=== PATIENT | female | born 1980 | race Caucasian/White ===

== ENCOUNTER 2016-06-16 16:37 | Emergency (ER) | payer SELFPAY ==
[~2016-06-16] VITALS: Ht 165.1 cm; Wt 76.2 kg
[~2016-06-16 16:37] MED LIST: CEPH500C PO; CYCL10TA2 PO; HYDR-971 PO; IBUP-1027 PO; MUPI22OI2 TP; OXYC-323 PO; PRED20TA PO; SULF1TAB24 PO
[2016-06-16 16:43] VITALS: BP 139/81
[2016-06-16] MEDS ORDERED: ORPH100T PO (16:59)
[2016-06-16] MEDS ORDERED: NAPR550T PO (16:59)
[2016-06-16] MEDS ORDERED: HYDR-971 PO (16:59)
--- NOTE | 2016-06-16 17:00 | PHYS DOC ---
Past Medical History Past Medical History: Other Additional Past Medical Histor: back pain Past Surgical History: No Surgical History Alcohol Use: None Drug Use: None Adult General Chief Complaint Chief Complaint: LOWEREXTREMITY INJURY [facility] HPI Patient is a 36 year old female presents emergency room the complain of left hip and groin pain secondary to stepping into an uneven surface last night causing her to twist her left leg outward with subsequent fall. Patient denies striking her head or loss of consciousness. She denies any history of bone forming disorders. She denies any previous hip or thigh fractures or dislocations. She states that she is able to bear weight and walk on it but it does cause tightness and pulling in her left groin region. Patient does have an established history of chronic back pain with degenerative disc disease. Review of Systems Review of Systems Constitutional: Denies fever or chills [] Eyes: Denies change in visual acuity, redness, or eye pain [] HENT: Denies nasal congestion or sore throat [] Respiratory: Denies cough or shortness of breath [] Cardiovascular: No additional information not addressed in HPI [] GI: Denies abdominal pain, nausea, vomiting, bloody stools or diarrhea [] : Denies dysuria or hematuria [] Musculoskeletal: Denies back pain or joint pain [] Integument: Denies rash or skin lesions [] Neurologic: Denies headache, focal weakness or sensory changes [] Endocrine: Denies polyuria or polydipsia [] Allergies Allergies Allergies Coded Allergies Type Severity Reaction Last Updated Verified No Known Drug Allergies 08/20/14 No Physical Exam Physical Exam Constitutional: Well developed, well nourished, no acute distress, non-toxic appearance. Patient ambulated to the examination room with a steady, but antalgic gait. HENT: Normocephalic, atraumatic, bilateral external ears normal, oropharynx moist, no oral exudates, nose normal. [] Eyes: PERRLA, EOMI, conjunctiva normal, no discharge. [] Neck: Normal range of motion, no tenderness, supple, no stridor. [] Cardiovascular:Heart rate regular rhythm, no murmur [] Lungs & Thorax: Bilateral breath sounds clear to auscultation [] Abdomen: Bowel sounds normal, soft, no tenderness, no masses, no pulsatile masses. [] Skin: Warm, dry, no erythema, no rash. [] Back: No tenderness, no CVA tenderness. Extremities: Left hip and upper left leg are normal in appearance. There is no bruising or swelling noted. There is tenderness to palpation in the left inguinal crease and into the proximal aspect of the thigh. There is no palpable defect, deformity, instability or crepitus. Patient is able to perform full range of motion without any difficulty. Her left knee is normal in appearance and nontender to palpation. Left lower extremity is neurovascular intact with capillary refill less than 2 seconds. Neurologic: Alert and oriented X 3, normal motor function, normal sensory function, no focal deficits noted. [] Psychologic: Affect normal, judgement normal, mood normal. [] Current Patient Data Vital Signs Vital Signs Date Time Temp Pulse Resp B/P Pulse Ox O2 Delivery O2 Flow Rate FiO2 06/16/16 16:43 97.4 91 16 98 Room Air 97.4 EKG EKG [] Radiology/Procedures Radiology/Procedures [] Course & Med Decision Making Course & Med Decision Making Pertinent Labs and Imaging studies reviewed. (See chart for details) [] Dragon Disclaimer Dragon Disclaimer This electronic medical record was generated, in whole or in part, using a voice recognition dictation system. Departure Departure Impression: Primary Impression: Strain of left hip Disposition: HOME, SELF-CARE Condition: GOOD Referrals: NO PCP (PCP) Patient Instructions: Hip Injury Additional Instructions: 1. You have strained the soft tissues of the left hip. This will cause tightness and pain in your left hip for the next 5-7 days or so. Apply ice packs every 2 hours for 20-30 minutes at a time for the next day, then apply heat packs over 2 hours for 20-30 minutes at a time after that. 2. You are okay to bear weight and walk. You are encouraged to do so and maintain mild activity level. 3. Take the medication as prescribed 4. Review the discharge instructions provided for self-care and reasons to return to the emergency department. 5. Use the pamphlet provided for assistance in finding a primary care doctor's office to address your medical concerns and provide follow-up care. Scripts Hydrocodone/Apap 5-325 ([place] 5-325 Tablet)1 Each Tablet1 Tab PO PRN Q6HRS PRN PAIN #10 TAB Prov:JUAN JOSE VALDIVIA 06/16/16 Orphenadrine Citrate 100 Mg Tablet.er100 Mg PO BID muscle relaxer #14 Prov:JUAN JOSE VALDIVIA 06/16/16 Naproxen Sodium (Anaprox Ds)550 Mg Pydkls425 Mg PO BID #20 Prov:JUAN JOSE VALDIVIA 06/16/16 JUAN JOSE VALDIVIA Jun 16, 2016 17:00
== END 2016-06-16 17:15 | disposition home or self-care (01) ==
LOC: ER 16:37
DX: S76.012A Strain of muscle, fascia and tendon of left hip, initial encounter (principal); R10.32 Left lower quadrant pain; G89.29 Other chronic pain; W01.0XXA Fall on same level from slipping, tripping and stumbling without subsequent striking against object, initial encounter; Y93.89 Activity, other specified; Y99.8 Other external cause status; Y92.89 Other specified places as the place of occurrence of the external cause
CPT/HCPCS: 99283

== ENCOUNTER 2016-08-30 21:14 | Emergency (ER) | payer SELFPAY ==
[~2016-08-30] VITALS: Ht 165.1 cm; Wt 79.4 kg
[~2016-08-30 21:14] MED LIST changes: +NAPR550T PO; +ORPH100T PO
[2016-08-30 21:27] VITALS: BP 144/72
[2016-08-30] MEDS ORDERED: NAPROXEN 500 MG TABLET PO ONE (21:45)
[2016-08-30] MEDS ORDERED: HYDROcodone/APAP 5/325MG 1 TAB TABLET PO ONE (21:45)
[2016-08-30] MEDS ORDERED: CYCL10TA2 PO (22:36)
[2016-08-30] MEDS ORDERED: NAPR500T8 PO (22:36)
--- NOTE | 2016-08-30 22:36 | PHYS DOC ---
Past Medical History Past Medical History: Other Additional Past Medical Histor: back pain Past Surgical History: No Surgical History Alcohol Use: None Drug Use: None Adult General Chief Complaint Chief Complaint: UPPER EXTREMITY INJURY HPI HPI Patient is a 36 year old female with no significant medical history who presents today with mild right forearm and right hand pain generalized in nature worse on movement of the upper extremity that began at 11 AM after she fell, she states her hand and forearm ended up in a hole. Patient denies any loss of consciousness. Review of Systems Review of Systems Constitutional: Denies fever or chills [] Musculoskeletal: Right hand and forearm pain [] Integument: Denies rash or skin lesions [] Neurologic: Denies headache, focal weakness or sensory changes [] Endocrine: Denies polyuria or polydipsia [] Current Medications Current Medications Current Medications Medications (Trade) Dose Ordered Sig/Chase Start Time Stop Time Status Last Admin Dose Admin Acetaminophen/ Hydrocodone Bitart (Lortab 5/325) 1 tab 1X ONCE 08/30/16 21:45 08/30/16 21:46 DC 08/30/16 21:51 1 TAB Naproxen (Naprosyn) 500 mg 1X ONCE 08/30/16 21:45 08/30/16 21:46 DC 08/30/16 21:50 500 MG Allergies Allergies Allergies Coded Allergies Type Severity Reaction Last Updated Verified No Known Drug Allergies 08/20/14 No Physical Exam Physical Exam Constitutional: Well developed, well nourished, no acute distress, non-toxic appearance. [] HENT: Normocephalic, atraumatic, bilateral external ears normal, oropharynx moist, no oral exudates, nose normal. [] Skin: Warm, dry, no erythema, no rash. [] Back: No tenderness, no CVA tenderness. [] Extremities: Right hand and forearm with no obvious deformity. Small amount of soft tissue swelling noted on the right forearm. Bruising noted on the right forearm especially on the lateral aspect. Tenderness diffusely on the right forearm, no scaphoid pain or tenderness on the right wrist. Full range of motion to the right forearm,wrist and hand. Adequate plantar flexion and dorsiflexion of the right forearm. Adequate radial, medial, and ulnar sensation to the right forearm and hand. +2 right radial pulse. Cap refill less than 2 seconds the right upper extremity. Sensation intact to the right upper extremity. Neurologic: Alert and oriented X 3, normal motor function, normal sensory function, no focal deficits noted. [] Psychologic: Affect normal, judgement normal, mood normal. [] Current Patient Data Vital Signs Vital Signs Date Time Temp Pulse Resp B/P (MAP) Pulse Ox O2 Delivery O2 Flow Rate FiO2 08/30/16 21:51 20 97 Room Air 08/30/16 21:27 98.1 92 98.1 EKG EKG [] Radiology/Procedures Radiology/Procedures [] Course & Med Decision Making Course & Med Decision Making Pertinent Labs and Imaging studies reviewed. (See chart for details) Patient is in the ED with complaints of right hand and right forearm pain after falling in a hole right hand and right forearm x-rays interpreted by Dr. Peralta are negative for any acute findings. Discharged with naproxen and Flexeril. Ice elevation encouraged. Follow-up with orthopedic doctor which provided in a week if pain continues. Neosporin recommended to bruised areas. Dragon Disclaimer Dragon Disclaimer This electronic medical record was generated, in whole or in part, using a voice recognition dictation system. Departure Departure Impression: Primary Impression: Fall into hole Additional Impressions: Contusion of right forearm Contusion of right hand Bruising Disposition: HOME, SELF-CARE Condition: STABLE Referrals: NO PCP (PCP) MARLON VILLELA II, MD Follow-up with orthopedic doctor in one week Patient Instructions: Contusion, [id number], Fall Prevention and Home Safety Additional Instructions: You were seen for right hand and right forearm contusion, after falling into a hole. Your x-rays of the right forearm and right hand are normal. Ice and elevate the extremity. Take the prescribed medicines as needed for pain. Follow- up with the provided orthopedic doctor in a week if pain continues. Apply Neosporin to the bruised area on your forearm and hand. Scripts Naproxen (NAPROXEN) 500 Mg Tablet.dr 1 TAB PO BID, #60 TAB 1 Refill Prov: FATMATA ACOSTA APRN 08/30/16 Cyclobenzaprine Hcl (CYCLOBENZAPRINE HCL) 10 Mg Tablet 1 TAB PO TID, #30 TAB Prov: FATMATA ACOSTA SLEEVE [employer]KER 08/30/16 Problem Qualifiers Primary Impression: Fall into hole Encounter type: initial encounter Qualified Codes: W17.2XXA - Fall into hole , initial encounter Additional Impressions: Contusion of right forearm Encounter type: initial encounter Qualified Codes: S50.11XA - Contusion of right forearm, initial encounter Contusion of right hand Encounter type: initial encounter Qualified Codes: S60.221A - Contusion of right hand, initial encounter FATMATA ACOSTA APRN August 30, 2016 22:36
--- NOTE | 2016-08-31 07:23 | RAD ---
Right hand, 3 views, 08/30/2016: History: Injury No fracture or dislocation is identified. The soft tissues are unremarkable. IMPRESSION: No acute right hand abnormality is detected. Right forearm, 2 views, 08/30/2016: No fracture or dislocation is identified. The soft tissues are unremarkable. IMPRESSION: No significant right forearm abnormality is detected.
== END 2016-08-30 22:50 | disposition home or self-care (01) ==
LOC: ER 21:14
DX: S50.11XA Contusion of right forearm, initial encounter (principal); S60.221A Contusion of right hand, initial encounter; W17.2XXA Fall into hole, initial encounter; Y93.89 Activity, other specified; Y92.89 Other specified places as the place of occurrence of the external cause; Y99.8 Other external cause status
CPT/HCPCS: 73090; 73130; 99284-25

== ENCOUNTER 2016-09-23 22:58 | Emergency (ER) | payer SELFPAY ==
[~2016-09-23] VITALS: Ht 167.6 cm; Wt 79.4 kg
[~2016-09-23 22:58] MED LIST changes: +NAPR500T8 PO
[2016-09-23 23:08] VITALS: BP 157/83
[2016-09-23 23:23] LABS: BILIRUBIN,URINE NEGATIVE (NEG); GLUCOSE,URINE NEGATIVE (NEG); NITRITE,URINE NEGATIVE (NEG); PH,URINE 5.5; PROTEIN,URINE NEGATIVE (NEG-TRACE); UROBILINOGEN,URINE 0.2 mg/dL (0.2 mg/dL)
--- NOTE | 2016-09-23 23:23 | PHYS DOC ---
Past Medical History Past Medical History: Other Additional Past Medical Histor: back pain Past Surgical History: No Surgical History Alcohol Use: None Drug Use: None Adult General Chief Complaint Chief Complaint: PAIN ON URINATION HPI HPI Patient is a 36 year old female presenting to the emergency department for evaluation of left lower quadrant and suprapubic abdominal pain that radiates to her left flank that has been going on for the past 5-6 days and is associated with dysuria. Episode of nausea and vomiting but she denies any fevers chills vaginal bleeding vaginal discharge diarrhea or constipation. She denies any prior abdominal surgeries and she is in no obvious distress with normal vital signs. Review of Systems Review of Systems Constitutional: Denies fever or chills [] GI: + abdominal pain, nausea, vomiting. No bloody stools or diarrhea [] : + dysuria. No hematuria [] Musculoskeletal: + back pain. No joint pain [] Current Medications Current Medications Current Medications Medications (Trade) Dose Ordered Sig/Chase Start Time Stop Time Status Last Admin Dose Admin Ibuprofen (Motrin) 800 mg 1X ONCE 09/23/16 23:30 09/23/16 23:31 DC Ondansetron HCl (Zofran Odt) 8 mg 1X ONCE 09/23/16 23:30 09/23/16 23:31 DC Oxycodone/ Acetaminophen (Percocet 5/325) 2 tab 1X ONCE 09/23/16 23:30 09/23/16 23:31 DC Allergies Allergies Allergies Coded Allergies Type Severity Reaction Last Updated Verified No Known Drug Allergies 08/20/14 No Physical Exam Physical Exam Constitutional: Well developed, well nourished, no acute distress, non-toxic appearance. [] Cardiovascular:Heart rate regular rhythm, no murmur [] Lungs & Thorax: Bilateral breath sounds clear to auscultation [] Abdomen: Bowel sounds normal, soft, + LLQ tenderness, no rebound or guarding Back: + L CVA tenderness. [] Current Patient Data Vital Signs Vital Signs Date Time Temp Pulse Resp B/P (MAP) Pulse Ox O2 Delivery O2 Flow Rate FiO2 09/23/16 23:08 97.8 87 15 157/83 (107) 100 Room Air 97.8 Lab Values Laboratory Tests Test 09/23/16 22:15 09/23/16 23:05 POC Urine HCG, Qualitative Hcg negative (Negative) Urine Collection Type Unknown Urine Color Yellow Urine Clarity Clear Urine pH 5.5 Urine Specific [place] 1.025 Urine Protein Negative mg/dL (NEG-TRACE) Urine Glucose (UA) Negative mg/dL (NEG) Urine Ketones (Stick) Negative mg/dL (NEG) Urine Blood Negative (NEG) Urine Nitrite Negative (NEG) Urine Bilirubin Negative (NEG) Urine Urobilinogen Dipstick 0.2 mg/dL (0.2 mg/dL) Urine Leukocyte Esterase Negative (NEG) Urine RBC 0 /HPF (0-2) Urine WBC Occ /HPF (0-4) Urine Squamous Epithelial Cells Mod /LPF Urine Bacteria Few /HPF (0-FEW) Urine Mucus Marked /LPF EKG EKG [] Radiology/Procedures Radiology/Procedures [] Course & Med Decision Making Course & Med Decision Making Patient with symptoms consistent with possible urinary tract infection so she will get urine and if negative may have to expand workup. Urine is quite unremarkable aside recommended CT scan to look for other pathology such as diverticulitis or ovarian cyst and may require ultrasound to rule out ovarian torsion. Patient says that her pain is better he was symptomatically treatment and she cannot stay as her significant other and twins are out in the car currently. She says that she would like something to treat the pain but she does not want any further diagnostic tests. She verbalized understanding that I could miss a critical diagnosis such as diverticulitis or ovarian torsion and accepted risks of and disability because along with missing these diagnoses. Patient will be discharged with symptomatic treatment and told to come back to the ER sooner with any worsening pain fevers vomiting or other general concerns. Patient aware and agreeable with plan and verbalized understanding of the above instructions. Jose Armando Disclaimer Dragon Disclaimer This electronic medical record was generated, in whole or in part, using a voice recognition dictation system. Departure Departure Impression: Primary Impression: Left flank pain Additional Impressions: Abdominal pain Nausea & vomiting Disposition: 01 HOME, SELF-CARE Condition: GOOD Referrals: NO PCP (PCP) Patient Instructions: Abdominal Pain (Nonspecific) Additional Instructions: Take 400 mg of ibuprofen every 6 hours for pain and the [place] for breakthrough pain. Follow with a primary care provider within the next 24-48 hours and come back to the ER sooner with any worsening pain fevers vomiting or other general concerns. Scripts Ondansetron (ZOFRAN ODT) 4 Mg Tab.rapdis 4 MG PO BID Y for NAUSEA/VOMITING, #10 TAB Prov: SACHIN YI DO 09/23/16 Hydrocodone/Apap 5-325 ([place] 5-325 TABLET) 1 Each Tablet 1 TAB PO PRN Q6HRS Y for PAIN, #14 TAB 0 Refills Prov: SACHIN YI DO 09/23/16 Problem Qualifiers Additional Impressions: Abdominal pain Abdominal location: left lower quadrant Qualified Codes: R10.32 - Left lower quadrant pain SACHIN YI DO Sep 23, 2016 23:23
[2016-09-23 23:30] LABS: BACTERIA,URINE FEW /HPF (0-FEW); RBC,URINE 0 /HPF (0-2); SQUAMOUS EPITHELIAL CELL,UR MOD /LPF; WBC,URINE OCC /HPF (0-4)
[2016-09-23] MEDS ORDERED: IBUPROFEN 800 MG TABLET. PO ONE (23:30)
[2016-09-23] MEDS ORDERED: ONDANSETRON ODT 4 MG TAB.RAPDIS. PO ONE (23:30)
[2016-09-23] MEDS ORDERED: oxyCODONE/APAP 5/325 1 TAB TABLET PO ONE (23:30)
[2016-09-23] MEDS ORDERED: ONDA4TAB10 PO (23:47)
[2016-09-23] MEDS ORDERED: HYDR-971 PO (23:47)
== END 2016-09-24 00:15 | disposition home or self-care (01) ==
LOC: ER 22:58
DX: R10.32 Left lower quadrant pain (principal); R11.2 Nausea with vomiting, unspecified; R30.0 Dysuria; M54.9 Dorsalgia, unspecified
CPT/HCPCS: 81001; 81025; 99284; Q0162

== ENCOUNTER 2016-12-08 11:51 | Emergency (ER) | payer SELFPAY ==
[~2016-12-08] VITALS: Ht 165.1 cm; Wt 84.4 kg
[~2016-12-08 11:51] MED LIST changes: +ONDA4TAB10 PO
[2016-12-08 13:18] VITALS: BP 131/77
--- NOTE | 2016-12-08 13:59 | PHYS DOC ---
Past Medical History Past Medical History: Other Additional Past Medical Histor: back pain Past Surgical History: No Surgical History Alcohol Use: None Drug Use: None Adult General Chief Complaint Chief Complaint: LOWER BACK PAIN OR INJURY HPI HPI Patient is a 36 year old female who presents with left lower back pain since yesterday morning. She does not recall an event that caused her pain but has history of pain in that same area with degenerative joint disease. She took ibuprofen yesterday evening, no pain relievers today. Denies dysuria, no saddle sensory change, no bowel or bladder incontinence or retention. She was seen for this in the past but has lost her insurance as she has no doctor to follow up with at this time. Review of Systems Review of Systems Constitutional: Denies fever or chills [] Eyes: Denies eye pain [] HENT: Denies nasal congestion or sore throat [] Respiratory: Denies cough or shortness of breath [] Cardiovascular: Denies chest pain GI: Denies abdominal pain, nausea, vomiting, or change in stools : Denies dysuria or hematuria [] Musculoskeletal: per history of present illness Integument: Denies rash Neurologic: Denies headache, focal weakness or sensory changes [] Current Medications Current Medications Current Medications Medications (Trade) Dose Ordered Sig/Chase Start Time Stop Time Status Last Admin Dose Admin Diazepam (Valium) 5 mg 1X ONCE 12/08/16 14:00 12/08/16 14:01 UNV Ketorolac Tromethamine (Toradol Im) 60 mg 1X ONCE 12/08/16 14:00 12/08/16 14:01 UNV Lidocaine (Lidoderm) 1 patch 1X ONCE 12/08/16 14:00 12/08/16 14:01 UNV Allergies Allergies Allergies Coded Allergies Type Severity Reaction Last Updated Verified No Known Drug Allergies 08/20/14 No Physical Exam Physical Exam Constitutional: Well developed, well nourished, no acute distress, non-toxic appearance. [] HENT: Normocephalic, atraumatic, bilateral external ears normal, oropharynx moist, no oral exudates, nose normal. [] Eyes: PERRLA, EOMI, conjunctiva normal, no discharge. [] Neck: Normal range of motion, no tenderness, supple, no stridor. [] Cardiovascular:Heart rate regular with regular rhythm, no murmur [] Lungs & Thorax: Bilateral breath sounds clear to auscultation , no wheeze/ crackles or rhonchi Abdomen: soft, no tenderness, no masses, no pulsatile masses. [] Skin: Warm, dry, no erythema, no rash. [] Back: No midline tenderness, ttp over SI joint left side with pain radiation to behind knee with straight leg raise Extremities: No tenderness, no cyanosis, no clubbing, ROM intact, no edema. [] Neurologic: Alert and oriented X 3, normal motor function, normal sensory function, no focal deficits noted. [] Psychologic: Affect normal, judgement normal, mood normal. [] Current Patient Data Vital Signs Vital Signs Date Time Temp Pulse Resp B/P (MAP) Pulse Ox O2 Delivery O2 Flow Rate FiO2 12/08/16 13:18 98.0 80 16 100 Room Air 98.0 EKG EKG [] Radiology/Procedures Radiology/Procedures [] Course & Med Decision Making Course & Med Decision Making Pertinent Labs and Imaging studies reviewed. (See chart for details) Patient given IM Toradol, Lidoderm patch and by mouth Valium. She is not driving. She is no signs of cord compression, no risk factors for abscess. Patient denies any IV drug use. She shows no signs of infection. Will dc with RX for lidoderm patch, flexeril and ibuprofen. Referral sheet given. Dragon Disclaimer Jose Armando Disclaimer This electronic medical record was generated, in whole or in part, using a voice recognition dictation system. Departure Departure Impression: Primary Impression: Sacroiliac joint dysfunction Additional Impression: Sacroiliac inflammation Disposition: 01 HOME, SELF-CARE Condition: STABLE Referrals: NO PCP (PCP) Patient Instructions: Sacroiliac Joint Dysfunction Additional Instructions: Please take medication as prescribed, schedule follow-up with a doctor, do not drive while taking cyclobenzaprine. Return if worsening symptoms. Scripts [lidoderm 5% patch] No Conflict Check 1 PATCH TP Y for PAIN, #5 PATCH apply to affected area for 12 hours, then remove for 12 hours. Prov: CANDE CHAPMAN MD 12/08/16 Cyclobenzaprine Hcl (CYCLOBENZAPRINE HCL) 5 Mg Tablet 5 MG PO PRN TID Y for back pain, #25 TAB Prov: CANDE CHAPMAN MD 12/08/16 Ibuprofen (IBUPROFEN) 600 Mg Tablet 600 MG PO PRN Q6HRS Y for PAIN, #20 TAB take with food or milk Prov: CANDE CHAPMAN MD 12/08/16 Problem Qualifiers CANDE CHAPMAN MD Dec 08, 2016 13:59
[2016-12-08 14:05] LABS: BILIRUBIN,URINE NEGATIVE (NEG); GLUCOSE,URINE NEGATIVE (NEG); NITRITE,URINE NEGATIVE (NEG); PROTEIN,URINE NEGATIVE (NEG-TRACE); UROBILINOGEN,URINE 0.2 mg/dL (0.2 mg/dL)
[2016-12-08] MEDS ORDERED: IBUP-1007 PO (14:09)
[2016-12-08] MEDS ORDERED: lidoderm 5% patch TP (14:09)
[2016-12-08] MEDS ORDERED: CYCL5TAB PO (14:09)
[2016-12-08 14:12] LABS: BACTERIA,URINE 0 /HPF (0-FEW); RBC,URINE OCC /HPF (0-2); SQUAMOUS EPITHELIAL CELL,UR MOD /LPF; WBC,URINE 0 /HPF (0-4)
[2016-12-08] MEDS ORDERED: diazePAM 5 MG TABLET PO ONE (14:15)
[2016-12-08] MEDS ORDERED: LIDOCAINE (700MG/PATCH) PATCH. TD ONE (14:15)
[2016-12-08] MEDS ORDERED: KETOROLAC TROMETHAMINE 60 MG/2 ML INJ. IM ONE (14:15)
== END 2016-12-08 14:26 | disposition home or self-care (01) ==
LOC: ER 11:51
DX: M46.1 Sacroiliitis, not elsewhere classified (principal)
CPT/HCPCS: 81001; 81025; 96372; 99283; J1885

== ENCOUNTER 2017-01-07 16:29 | Emergency (ER) | payer SELFPAY ==
[~2017-01-07] VITALS: Ht 165.1 cm; Wt 81.6 kg
[~2017-01-07 16:29] MED LIST changes: +CYCL5TAB PO; +IBUP-1007 PO; +NAPR-682 PO; -NAPR550T PO; +lidoderm 5% patch TP
[2017-01-07 16:38] VITALS: BP 144/71
[2017-01-07] MEDS ORDERED: CETI10TA22 PO (16:52)
[2017-01-07] MEDS ORDERED: FAMO20TA5 PO (16:52)
[2017-01-07] MEDS ORDERED: SULF1TAB24 PO (16:52)
[2017-01-07] MEDS ORDERED: PRED50TA PO (16:52)
--- NOTE | 2017-01-07 16:52 | PHYS DOC ---
Past Medical History Past Medical History: Other Additional Past Medical Histor: back pain Past Surgical History: No Surgical History Alcohol Use: None Drug Use: None Adult General Chief Complaint Chief Complaint: INSECT BITE [facility] Patient is a 36 year old female who presents with an insect bite to the left great toe that she noted yesterday. Patient believes it is from a bumblebee. Patient denies any fever. 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 Patient denies any difficulty swallowing or breathing tongue or throat swelling. Review of Systems Review of Systems Constitutional: Denies fever or chills [] Eyes: Denies change in visual acuity, redness, or eye pain [] HENT: Denies nasal congestion or sore throat [] Respiratory: Denies cough or shortness of breath [] Cardiovascular: No additional information not addressed in HPI [] GI: Denies abdominal pain, nausea, vomiting, bloody stools or diarrhea [] : Denies dysuria or hematuria [] Musculoskeletal: Denies back pain or joint pain [] Integument: insect bite to the left great toe Neurologic: Denies headache, focal weakness or sensory changes [] Allergies Allergies Allergies Coded Allergies Type Severity Reaction Last Updated Verified No Known Drug Allergies 08/20/14 No Physical Exam Physical Exam Constitutional: Well developed, well nourished, no acute distress, non-toxic appearance. [] HENT: Normocephalic, atraumatic, bilateral external ears normal, oropharynx moist, no oral exudates, nose normal. [] Eyes: PERRLA, EOMI, conjunctiva normal, no discharge. [] Neck: Normal range of motion, no tenderness, supple, no stridor. [] Cardiovascular:Heart rate regular rhythm, no murmur [] Lungs & Thorax: Bilateral breath sounds clear to auscultation [] Abdomen: Bowel sounds normal, soft, no tenderness, no masses, no pulsatile masses. [] Skin: Left medial as well as the tip of the great toe with mild soft tissue swelling and erythema consistent with an insect bite. Back: No tenderness, no CVA tenderness. [] Extremities: No tenderness, no cyanosis, no clubbing, ROM intact, no edema. [] Neurologic: Alert and oriented X 3, normal motor function, normal sensory function, no focal deficits noted. [] Psychologic: Affect normal, judgement normal, mood normal. [] Current Patient Data Vital Signs Vital Signs Date Time Temp Pulse Resp B/P (MAP) Pulse Ox O2 Delivery O2 Flow Rate FiO2 01/07/17 16:38 98.1 90 18 98 Room Air 98.1 EKG EKG [] Radiology/Procedures Radiology/Procedures [] Course & Med Decision Making Course & Med Decision Making Pertinent Labs and Imaging studies reviewed. (See chart for details) Patient has insect bite to the left great toe from a bumble bee. Tetanus is up- to-date. Discharged with prednisone, Benadryl, famotidine, and she requested antibiotics. She was given Bactrim. No difficulty swallowing or breathing tongue or throat swelling. She is to follow-up with her own PCP in 1-2 weeks Jose Armando Disclaimer Jose Armando Disclaimer This electronic medical record was generated, in whole or in part, using a voice recognition dictation system. Departure Departure Impression: Primary Impression: Insect bite Disposition: HOME, SELF-CARE Condition: STABLE Referrals: NO PCP (PCP) Follow-up with your doctor in one week Patient Instructions: Insect Bite, [id number] Additional Instructions: You were seen for an insect bite on her left great toe. Keep the area clean and dry. Take the prescribed medicines as ordered. Ensure you take Benadryl as well. Follow-up with your own doctor in one week. Come back to the ED at any point symptoms worsen. Scripts Tramadol Hcl (ULTRAM) 50 Mg Tablet 1 TAB PO Q6HRS, #30 TAB Prov: FATMATA ACOSTA APRN 01/07/17 Cetirizine Hcl (ZYRTEC) 10 Mg Tablet 1 TAB PO DAILY, #30 TAB 2 Refills Prov: FATMATA ACOSTA APRN 01/07/17 Prednisone (PREDNISONE) 50 Mg Tablet 1 TAB PO DAILY, #5 TAB Prov: FATMATA ACOSTA APRN 01/07/17 Famotidine (FAMOTIDINE) 20 Mg Tablet 20 MG PO DAILY, #14 TAB Prov: FATMATA ACOSTA APRN 01/07/17 Sulfamethoxazole/Trimethoprim (BACTRIM DS TABLET) 1 Each Tablet 1 TAB PO BID, #20 TAB Prov: FATMATA ACOSTA APRN 01/07/17 Problem Qualifiers Primary Impression: Insect bite Encounter type: initial encounter Qualified Codes: W57.XXXA - Bitten or stung by nonvenomous insect and other nonvenomous arthropods, initial encounter FATMATA ACOSTA APRN Jan 07, 2017 16:52
[2017-01-07] MEDS ORDERED: TRAM-48 PO (16:59)
== END 2017-01-07 16:59 | disposition home or self-care (01) ==
LOC: ER 16:29
DX: S90.462A Insect bite (nonvenomous), left great toe, initial encounter (principal); Z86.14 Personal history of Methicillin resistant Staphylococcus aureus infection; W57.XXXA Bitten or stung by nonvenomous insect and other nonvenomous arthropods, initial encounter; Y93.89 Activity, other specified; Y92.89 Other specified places as the place of occurrence of the external cause; Y99.8 Other external cause status
CPT/HCPCS: 99283

== ENCOUNTER 2017-10-04 16:35 | Emergency (ER) | payer SELFPAY ==
[2017-10-05 08:33] LABS: URINE HCG POC HCG NEGATIVE (Negative)
== END 2017-10-04 18:52 | disposition home or self-care (01) ==
LOC: ER 18:52
DX: S40.021A Contusion of right upper arm, initial encounter (principal); M54.5 Low back pain; I10 Essential (primary) hypertension; W19.XXXA Unspecified fall, initial encounter; Y93.89 Activity, other specified; Y92.89 Other specified places as the place of occurrence of the external cause; Y99.8 Other external cause status
CPT/HCPCS: 72072; 72100; 81025; 99284

== ENCOUNTER 2017-12-27 20:17 | Emergency (ER) | payer SELFPAY ==
[2017-10-04 17:06] VITALS: BP 132/87
[~2017-12-27 20:17] MED LIST changes: +CETI10TA22 PO; +FAMO20TA5 PO; +PRED50TA PO; +TRAM-48 PO
[2017-12-31] MEDS ORDERED: FERR325T14 PO (08:50)
[2017-12-31] MEDS ORDERED: OXYC1TAB7 PO (08:50)
== END 2017-12-27 22:55 | disposition left against medical advice (07) ==
LOC: ER 20:17
DX: O20.8 Other hemorrhage in early pregnancy (principal); Z53.21 Procedure and treatment not carried out due to patient leaving prior to being seen by health care provider; Z3A.08 8 weeks gestation of pregnancy

== ENCOUNTER 2017-12-30 09:01 | Observation (INO) | payer SELFPAY ==
[~2017-12-30] VITALS: Ht 167.6 cm; Wt 77.1 kg
[2017-12-30] VITALS (9 sets, daily range): BP systolic 81–105; BP diastolic 43–57
[2017-12-30] MEDS ORDERED: OXYTOCIN 10 UNIT/ML VIAL. ONE (09:02)
[2017-12-30] MEDS ORDERED: VASOPRESSIN 20 UNIT/ML VIAL. ONE (09:02)
[2017-12-30] MEDS ORDERED: IV NORMAL SALINE 1000ML BAG 1,000 ML IV SCH (09:42)
[2017-12-30] MEDS ORDERED: MORPHINE SULFATE 4 MG/ML VIAL. IV PRN (09:45)
[2017-12-30] MEDS ORDERED: IV NORMAL SALINE 1000ML BAG 1,000 ML IV ONE (09:45)
[2017-12-30] MEDS ORDERED: ONDANSETRON PF 4 MG/2 ML VIAL. IV PRN ×3 (09:45→11:15)
[2017-12-30] MEDS ORDERED: MORPHINE SULFATE 10 MG/ML VIAL. IV ONE (09:45)
[2017-12-30] MEDS ORDERED: ONDANSETRON PF 4 MG/2 ML VIAL. IV ONE (09:45)
--- NOTE | 2017-12-30 09:50 | PHYS DOC ---
Past Medical History Past Medical History: Hypertension, Other Additional Past Medical Histor: back pain, preeclampsia Past Surgical History: No Surgical History Additional Information: 6 cigarettes daily Alcohol Use: None Drug Use: None Adult General Chief Complaint Chief Complaint: VAGINAL BLEEDING [facility] HPI Patient is a 37 year old female with history of hypertension who presents today complaining of vaginal bleeding in . Patient states she started spotting 3 days ago, she states yesterday her bleeding increased and today she woke up and was passing large clots. She is a 5 para 5 with the last being a set of twins. Patient is also complaining of moderate abdominal cramping that began this morning. Denies any nausea vomiting. Review of Systems Review of Systems Constitutional: Denies fever or chills [] Eyes: Denies change in visual acuity, redness, or eye pain [] HENT: Denies nasal congestion or sore throat [] Respiratory: Denies cough or shortness of breath [] Cardiovascular: No additional information not addressed in HPI [] GI: Reports vaginal bleeding in with abdominal cramping, denies nausea , vomiting, bloody stools or diarrhea [] : Denies dysuria or hematuria [] Musculoskeletal: Denies back pain or joint pain [] Integument: Denies rash or skin lesions [] Neurologic: Denies headache, focal weakness or sensory changes [] All other systems were reviewed and found to be within normal limits, except as documented in this note. Current Medications Current Medications Current Medications Medications (Trade) Dose Ordered Sig/Chase Start Time Stop Time Status Last Admin Dose Admin Morphine Sulfate (Morphine Sulfate) 5 mg 1X ONCE 12/30/17 09:45 12/30/17 09:46 Ondansetron HCl (Zofran) 4 mg 1X ONCE 12/30/17 09:45 12/30/17 09:46 Sodium Chloride 1,000 ml @ 1,000 mls/hr 1X ONCE 12/30/17 09:45 12/30/17 10:44 Allergies Allergies Allergies Coded Allergies Type Severity Reaction Last Updated Verified No Known Drug Allergies 08/20/14 No Physical Exam Physical Exam Constitutional: Well developed, well nourished, no acute distress, non-toxic appearance. [] HENT: Normocephalic, atraumatic, bilateral external ears normal, oropharynx moist, no oral exudates, nose normal. [] Eyes: PERRLA, EOMI, conjunctiva normal, no discharge. [] Neck: Normal range of motion, no tenderness, supple, no stridor. [] Cardiovascular:Heart rate regular rhythm, no murmur [] Lungs & Thorax: Bilateral breath sounds clear to auscultation [] Abdomen: Bowel sounds normal, soft, no tenderness, no masses, no pulsatile masses. [] Pelvic exam External pelvic is covered with blood and blood clots Vaginal vault is covered with moderate amount of blood and blood clots, there is pooling of blood in the vaginal vault. I attempted to remove some of the clots but patient was pooling more and more blood with clots. Dr. Anthony was consulted right away. Skin: Warm, dry, no erythema, no rash. [] Back: No tenderness, no CVA tenderness. [] Extremities: No tenderness, no cyanosis, no clubbing, ROM intact, no edema. [] Neurologic: Alert and oriented X 3, normal motor function, normal sensory function, no focal deficits noted. [] Psychologic: Affect normal, judgement normal, mood normal. [] Current Patient Data Vital Signs Vital Signs Date Time Temp Pulse Resp B/P (MAP) Pulse Ox O2 Delivery O2 Flow Rate FiO2 12/30/17 09:08 99.1 119 24 127/74 (91) 99 99.1 EKG EKG [] Radiology/Procedures Radiology/Procedures [] Course & Med Decision Making Course & Med Decision Making Pertinent Labs and Imaging studies reviewed. (See chart for details) This is a 37-year-old female patient 5 para 5 presenting with vaginal bleeding that began 3 days ago and got worse today. On pelvic exam patient had pooling of blood and blood clots in her vaginal vault. 09:[address] Anthony who stated he'll come to the ED right away and see patient 09:42 Dr. anthony evaluated patient and is taking patient to surgery now. Dragon Disclaimer Dragon Disclaimer This electronic medical record was generated, in whole or in part, using a voice recognition dictation system. Departure Departure Impression: Primary Impression: Spontaneous Disposition: ADMITTED INPATIENT Condition: GOOD FATMATA ACOSTA ARETHA Dec 30, 2017 09:50
[2017-12-30] MEDS ORDERED: SUCCINYLCHOLINE 200 MG/10 ML VIAL. ONE (09:54)
[2017-12-30] MEDS ORDERED: fentaNYL PF VIAL 100 MCG/2 ML VIAL ONE ×2 (09:54→10:05)
[2017-12-30] MEDS ORDERED: MIDAZOLAM HCL/PF 2 MG/2 ML VIAL. ONE (09:55)
[2017-12-30] MEDS ORDERED: KETOROLAC 30 MG/ML INJ FOR OR. INJ ONE (09:56)
[2017-12-30] MEDS ORDERED: ONDANSETRON PF 4 MG/2 ML VIAL. ONE (09:56)
[2017-12-30] MEDS ORDERED: DEXAMETHASONE SOD PHOS 20 MG/5 ML VIAL. ONE (09:56)
[2017-12-30] MEDS ORDERED: PROPOFOL 20 ML IV ONE (09:56)
[2017-12-30] MEDS ORDERED: LIDOCAINE 1% PF 2 ML VIAL. ID PRN (10:15)
[2017-12-30] MEDS ORDERED: fentaNYL PF VIAL 100 MCG/2 ML VIAL IV PRN (10:15)
[2017-12-30] MEDS ORDERED: fentaNYL PF VIAL 100 MCG/2 ML VIAL IV ONE (10:15)
[2017-12-30] MEDS ORDERED: HYDROmorphone 2 MG/ML VIAL IV PRN (10:15)
[2017-12-30] MEDS ORDERED: PROCHLORPERAZINE 10 MG/2 ML VIAL. IV PRN ×2 (10:15→11:15)
[2017-12-30] MEDS ORDERED: MORPHINE SULFATE 2 MG/ML VIAL. IV PRN (10:15)
[2017-12-30] MEDS ORDERED: fentaNYL PF VIAL 100 MCG/2 ML VIAL IM ONE (10:15)
[2017-12-30] MEDS ORDERED: ePHEDrine PF IN SALINE 50 MG/5 ML DISP.SYRIN IV ONE (10:51)
[2017-12-30] MEDS ORDERED: SEVOFLURANE 31 TO 60 MINUTES. IH ONE (11:00)
--- NOTE | 2017-12-30 11:06 | PDOC ---
BRIEF OPERATIVE NOTE Date: Dec 30, 2017 Pre-Op Diagnosis Incomplete Post-Op Diagnosis Same Procedure Performed Suction D&C Surgeon Dr. Anthony Anesthesia Type: General Blood Loss 200 ml Specimens Obtained POC Findings 8 wks incomplete with POC and blood products Complications none Operative Note see dictation RAQUEL ANTHONY Jr, MD Dec 30, 2017 11:06
[2017-12-30] MEDS ORDERED: DEXTROSE 50% 25 GM / 50ML DISP.SYRIN. IV PRN (11:15)
[2017-12-30] MEDS ORDERED: KETOROLAC 30 MG/ML VIAL. IV PRN (11:15)
[2017-12-30] MEDS ORDERED: CALCIUM CARBONATE 500 MG TAB.CHEW PO PRN (11:15)
[2017-12-30] MEDS ORDERED: diphenhydrAMINE 50 MG/ML VIAL IV PRN (11:15)
[2017-12-30] MEDS ORDERED: diphenhydrAMINE HCL 25 MG CAPSULE PO PRN (11:15)
[2017-12-30] MEDS ORDERED: SIMETHICONE 80 MG TAB.CHEW PO PRN (11:15)
[2017-12-30] MEDS ORDERED: ZOLPIDEM 5 MG TABLET. PO PRN (11:15)
[2017-12-30] MEDS ORDERED: 0.9 % SODIUM CHLORIDE 10 ML DISP.SYRIN. IV PRN (11:15)
[2017-12-30] MEDS: IV RINGERS,LACTATED 1000ML 1,000 ML IV SCH ×2 (11:33→11:44)
[2017-12-30] MEDS: fentaNYL PF VIAL 100 MCG/2 ML VIAL IV PRN ×2 (11:35→11:53)
[2017-12-30] MEDS ORDERED: HYDROmorphone 2 MG/ML VIAL IVP PRN (12:15)
--- NOTE | 2017-12-30 12:15 | OP ---
DATE OF SURGERY: 12/30/2017 PREOPERATIVE DIAGNOSIS: Incomplete . POSTOPERATIVE DIAGNOSIS: Incomplete . PROCEDURE: Suction D and C. SURGEON: Raquel Anthony MD. ANESTHESIA: GETA. ESTIMATED BLOOD LOSS: 100 mL. COMPLICATIONS: None. FINDINGS: 8 weeks' incomplete and products of conception and blood products. SUMMARY: A 37-year-old who presented to Emergency Department with active vaginal bleeding that started today without a triggering event. The patient was counseled on risks, benefits and expectations of emergent suction D and C. She voiced clear understanding to proceed. DESCRIPTION OF PROCEDURE: The patient was taken to surgery suite and placed in dorsal lithotomy position. She was prepped with Betadine solution and draped in a sterile fashion. After adequate anesthesia, weighted speculum and curved Holly placed vaginally. Single tooth tenaculum was placed on anterior lip of the cervix. There were large blood clots and tissue removed with ring forceps. An 8-mm curved suction curette was then placed and rotated in a circumferential manner, removing additional blood products and products of conception. Sharp curettage took place until a fine gritty surface was palpated circumferentially. Suction curette was passed once again removing additional blood products and products of conception. Single tooth tenaculum was removed passing the uterus that palpated firm. The weighted speculum was removed. The patient tolerated the procedure well and was taken to recovery room in stable condition. Sponge and needle count correct x 3. RAQUEL ANTHONY MD DR: MARIE/james JOB#: [id number] / [id number]
[2017-12-30] MEDS: GABAPENTIN 300 MG CAPSULE. PO SCH ×2 (13:53→22:18)
[2017-12-30 16:40] LABS: HEMATOCRIT 24.5 % (36.0-47.0); HEMOGLOBIN 8.6 g/dL (12.0-15.5); RED BLOOD COUNT 2.63 x10^6/uL (3.50-5.40); RED CELL DISTRIBUTION WIDTH 12.5 % (11.5-14.5); WHITE BLOOD COUNT 7.6 x10^3/uL (4.0-11.0)
[2017-12-30] MEDS: oxyCODONE/APAP 5/325 1 TAB TABLET PO PRN ×2 (16:57→20:57)
[2017-12-31 00:35] VITALS: BP 94/57
[2017-12-31 04:41] LABS: BASO % 0 % (0-3); EOS % 0 % (0-3); HEMATOCRIT 21.9 % (36.0-47.0); HEMOGLOBIN 7.8 g/dL (12.0-15.5); LYMPH # 1.2 x10^3/uL (1.0-4.8); LYMPH % 18 % (24-48); MEAN CORPUSCULAR HEMOGLOBIN 33 pg (25-35); MEAN CORPUSCULAR HGB CONC 35 g/dL (31-37); MEAN CORPUSCULAR VOLUME 94 fL (79-100); MONO # 0.6 x10^3/uL (0.0-1.1); MONO % 8 % (0-9); NEUT # 5.1 x10^3uL (1.8-7.7); NEUT % 74 % (31-73); PLATELET COUNT 204 x10^3/uL (140-400); RED BLOOD COUNT 2.34 x10^6/uL (3.50-5.40); RED CELL DISTRIBUTION WIDTH 12.5 % (11.5-14.5); WHITE BLOOD COUNT 6.8 x10^3/uL (4.0-11.0)
[2017-12-31 04:55] VITALS: BP 105/56
[2017-12-31] MEDS: oxyCODONE/APAP 5/325 1 TAB TABLET PO PRN ×2 (05:00→10:10)
[2017-12-31] MEDS: GABAPENTIN 300 MG CAPSULE. PO SCH (08:00)
--- NOTE | 2017-12-31 08:47 | PDOC ---
SURGICAL PROGRESS NOTE Subjective Pt. feeling better with less bleeding. Pain controlled. Vital Signs Vital Signs Date Time Temp Pulse Resp B/P (MAP) Pulse Ox O2 Delivery O2 Flow Rate FiO2 12/31/17 05:00 18 12/31/17 04:55 99.0 76 105/56 (72) 98 Room Air 99.0 12/30/17 11:35 10.0 I&O Intake and Output 12/31/17 07:00 Intake Total 2060 ml Output Total 200 ml Balance 1860 ml Intake Oral 10 ml IV Total 2050 ml Output Estimated Blood Loss 200 ml # Voids 2 PATIENT HAS A AMBROCIO: No General: Alert, Oriented X3, Cooperative HEENT: Atraumatic Lungs: Clear to auscultation Heart: Regular rate Abdomen: Normal bowel sounds, Soft, No tenderness, No masses Psych/Mental Status: Mental status NL Labs Laboratory Tests Test 12/30/17 16:30 12/31/17 04:00 White Blood Count 7.6 x10^3/uL (4.0-11.0) 6.8 x10^3/uL (4.0-11.0) Red Blood Count 2.63 x10^6/uL (3.50-5.40) 2.34 x10^6/uL (3.50-5.40) Hemoglobin 8.6 g/dL (12.0-15.5) 7.8 g/dL (12.0-15.5) Hematocrit 24.5 % (36.0-47.0) 21.9 % (36.0-47.0) Mean Corpuscular Volume 93 fL (79-100) 94 fL (79-100) Mean Corpuscular Hemoglobin 33 pg (25-35) 33 pg (25-35) Mean Corpuscular Hemoglobin Concent 35 g/dL (31-37) 35 g/dL (31-37) Red Cell Distribution Width 12.5 % (11.5-14.5) 12.5 % (11.5-14.5) Platelet Count 216 x10^3/uL (140-400) 204 x10^3/uL (140-400) Neutrophils (%) (Auto) 74 % (31-73) Lymphocytes (%) (Auto) 18 % (24-48) Monocytes (%) (Auto) 8 % (0-9) Eosinophils (%) (Auto) 0 % (0-3) Basophils (%) (Auto) 0 % (0-3) Neutrophils # (Auto) 5.1 x10^3uL (1.8-7.7) Lymphocytes # (Auto) 1.2 x10^3/uL (1.0-4.8) Monocytes # (Auto) 0.6 x10^3/uL (0.0-1.1) Eosinophils # (Auto) 0.0 x10^3/uL (0.0-0.7) Basophils # (Auto) 0.0 x10^3/uL (0.0-0.2) Laboratory Tests Test 12/30/17 16:30 12/31/17 04:00 White Blood Count 7.6 x10^3/uL (4.0-11.0) 6.8 x10^3/uL (4.0-11.0) Red Blood Count 2.63 x10^6/uL (3.50-5.40) 2.34 x10^6/uL (3.50-5.40) Hemoglobin 8.6 g/dL (12.0-15.5) 7.8 g/dL (12.0-15.5) Hematocrit 24.5 % (36.0-47.0) 21.9 % (36.0-47.0) Mean Corpuscular Volume 93 fL (79-100) 94 fL (79-100) Mean Corpuscular Hemoglobin 33 pg (25-35) 33 pg (25-35) Mean Corpuscular Hemoglobin Concent 35 g/dL (31-37) 35 g/dL (31-37) Red Cell Distribution Width 12.5 % (11.5-14.5) 12.5 % (11.5-14.5) Platelet Count 216 x10^3/uL (140-400) 204 x10^3/uL (140-400) Neutrophils (%) (Auto) 74 % (31-73) Lymphocytes (%) (Auto) 18 % (24-48) Monocytes (%) (Auto) 8 % (0-9) Eosinophils (%) (Auto) 0 % (0-3) Basophils (%) (Auto) 0 % (0-3) Neutrophils # (Auto) 5.1 x10^3uL (1.8-7.7) Lymphocytes # (Auto) 1.2 x10^3/uL (1.0-4.8) Monocytes # (Auto) 0.6 x10^3/uL (0.0-1.1) Eosinophils # (Auto) 0.0 x10^3/uL (0.0-0.7) Basophils # (Auto) 0.0 x10^3/uL (0.0-0.2) Assessment/Plan A: POD#1 s/p suction D&C P: D/c home. RAQUEL URENA Jr, MD Dec 31, 2017 08:47
--- NOTE | 2017-12-31 08:48 | DISCH ---
DISCHARGE INSTRUCTIONS Condition on Discharge Condition on Discharge: Stable Activity After Discharge Activity Instructions for Disc: Activity as tolerated Lifting Instructions after Dis: No heavy lifting Driving Instructions after Dis: Do not drive today Diet after Discharge Diet after Discharge: Regular Contacting the DRChari after DC Call your doctor for: Concerns you may have Follow-Up Follow up with: Dr. Anthony in 2 weeks. RAQUEL ANTHONY Jr, MD Dec 31, 2017 08:48
[2017-12-31] MEDS ORDERED: OXYC1TAB7 PO (08:50)
[2017-12-31] MEDS ORDERED: FERR325T14 PO (08:50)
[2017-12-31 10:20] VITALS: BP 99/52
--- NOTE | 2018-01-03 10:08 | PATHOLOGY ---
[facility] Accession Number: [id number] . 01 Material submitted: . PART A: PRODUCTS OF CONCEPTION PART B: PRODUCTS OF CONCEPTION . 01 Clinical history: . Miscarriage. . 02 Diagnosis: A. Products of conception #1: - Products of conception, comprised of segments of tissue, immature chorionic villi focally containing nucleated red blood cells and showing focal hydropic degenerative changes, and segments of decidual tissue and hypersecretory endometrium showing focal hemorrhage, necrosis, and acute inflammation. . B. Products of conception #2: - Products of conception, comprised of few immature chorionic villi and predominant segments of decidual tissue and hypersecretory endometrium showing focal hemorrhage, necrosis, and acute inflammation. (JPM:paula; 12/31/2017) QMS/01/03/2018 . 02 Electronically signed: . Toñito Hernandez MD, Pathologist NPI- [id number] . 01 Gross description: . A. Received in formalin labeled "Gabby Stanford, products of conception" is a 96 g, 9.1 x 8.8 x 3.1 cm aggregate of red-brown clotted blood. Also present is an 11 g, 5.0 x 4.0 x 1.5 cm aggregate of pink-red placental tissue. No parts are identified. Sample Paster sections of the placental tissue are submitted in cassettes A1-A3. . B. Received in formalin labeled "Gabby Stanford, products of conception #2" is an 8 g, 5.0 x 3.2 x 1.5 cm aggregate of pink-red soft tissue fragments and red-brown clotted blood. No parts are identified. Sample Paster sections of the specimen are submitted in cassette B1-B3. [place] [place] SYC/SYC . 02 Pathologist provided ICD-10: O02.89 . 02 CPT . 478747, 559825 Specimen Comment: A courtesy copy of this report has been sent to Specimen Comment: [phone], . Specimen Comment: Report sent to / DR ACOSTA Performed at: 01 [facility] [address] [place] [address] [address], [place] [id number] MD Sadi Roman MD Phone: [phone] Performed at: 02 [facility] [address] [place], [place] [id number] MD Toñito Hernandez MD Phone: [phone]
== END 2017-12-31 12:41 | disposition home or self-care (01) ==
LOC: ER 09:01 → INTOOBSV 09:40 → 3 NORTH 09:40
PROVIDERS: ADMIT Obstetrics & Gynecology; ATTEND Obstetrics & Gynecology
DX: O03.4 Incomplete spontaneous abortion without complication (principal); O30.009 Twin pregnancy, unspecified number of placenta and unspecified number of amniotic sacs, unspecified trimester; O46.90 Antepartum hemorrhage, unspecified, unspecified trimester; Z87.891 Personal history of nicotine dependence; O10.011 Pre-existing essential hypertension complicating pregnancy, first trimester; Z3A.01 Less than 8 weeks gestation of pregnancy
CPT/HCPCS: 36415; 59812; 85025; 85027; 86850; 86900; 86901; 88305; 96374; 96375; 99285; G0378; J0690; J0780; J1100; J1170; J1885; J2250; J2270; J2405; J2590; J2704; J3010; J3490; J7030; J7120; G0379; J0330

== ENCOUNTER 2018-03-27 09:40 | Emergency (ER) | payer SELFPAY ==
[~2018-03-27] VITALS: Ht 167.6 cm; Wt 77.1 kg
[~2018-03-27 09:40] MED LIST changes: +FERR325T14 PO; +HYDR-3164 PO; -HYDR-971 PO; -OXYC-323 PO; +OXYC1TAB15 PO; +OXYC1TAB7 PO
[2018-03-27 09:45] VITALS: BP 129/70
--- NOTE | 2018-03-27 11:08 | RAD ---
Right shoulder radiograph 03/27/2018 10:47 AM INDICATION: Right shoulder pain after lifting heavy object. COMPARISON: None available. TECHNIQUE: 3 views of the right shoulder are provided. FINDINGS: There is no acute fracture or dislocation. Bone mineralization is within normal limits. Joint spaces are maintained. Regional soft tissues are within normal limits. There is no soft tissue gas or osseous erosion. IMPRESSION: No acute fracture or dislocation involving the acromioclavicular and glenohumeral joints. Electronically signed by: Laura Jaquez MD (03/27/2018 11:04 AM) [facility]
--- NOTE | 2018-03-27 11:14 | PHYS DOC ---
Past Medical History Past Medical History: No Pertinent History, Hypertension, Other Additional Past Medical Histor: back pain, preeclampsia Past Surgical History: No Surgical History Alcohol Use: None Drug Use: None Adult General Chief Complaint Chief Complaint: SHOULDER INJURY [facility] HPI Patient is a 37 year old female presents for evaluation of right shoulder pain since Wednesday. Reports was helping move furniture on Wednesday when her right shoulder was hyperextended that. She reports some popping sensations in the joint when she has movement of the shoulder now. This was not present prior to this. Denies other injuries. Review of Systems Review of Systems Constitutional: Denies fever or chills [] Respiratory: Denies cough or shortness of breath [] Cardiovascular: No additional information not addressed in HPI [] GI: Denies abdominal pain, nausea, vomiting, bloody stools or diarrhea [] : Denies dysuria or hematuria [] Musculoskeletal: RT SHOULDER PAIN [] Integument: Denies rash or skin lesions [] Neurologic: Denies headache, focal weakness or sensory changes [] Endocrine: Denies polyuria or polydipsia [] All other systems were reviewed and found to be within normal limits, except as documented in this note. Allergies Allergies Allergies Coded Allergies Type Severity Reaction Last Updated Verified No Known Drug Allergies 08/20/14 No Physical Exam Physical Exam Constitutional: Well developed, well nourished, no acute distress, non-toxic appearance. [] Neck: Normal range of motion, no tenderness, supple, no stridor. [] Skin: Warm, dry, no erythema, no rash. [] Extremities: RT SHOULDER TTP AT AC JOINT, OVERHEAD MVMT PAINFUL, NEURO INTACT Neurologic: Alert and oriented X 3, normal motor function, normal sensory function, no focal deficits noted. [] Psychologic: Affect normal, judgement normal, mood normal. [] Current Patient Data Vital Signs Vital Signs Date Time Temp Pulse Resp B/P (MAP) Pulse Ox O2 Delivery O2 Flow Rate FiO2 03/27/18 09:45 97.7 102 17 129/70 (89) 100 Room Air 97.7 EKG EKG [] Radiology/Procedures Radiology/Procedures [PROCEDURE: SHOULDER 2+V RIGHT Right shoulder radiograph 03/27/2018 10:47 AM INDICATION: Right shoulder pain after lifting heavy object. COMPARISON: None available. TECHNIQUE: 3 views of the right shoulder are provided. FINDINGS: There is no acute fracture or dislocation. Bone mineralization is within normal limits. Joint spaces are maintained. Regional soft tissues are within normal limits. There is no soft tissue gas or osseous erosion. IMPRESSION: No acute fracture or dislocation involving the acromioclavicular and glenohumeral joints. Electronically signed by: Laura Jaquez MD (03/27/2018 11:04 AM) [facility] ] Course & Med Decision Making Course & Med Decision Making Pertinent Labs and Imaging studies reviewed. (See chart for details) [Follow-up with orthopedics, referral provided with discharge instructions.] Staff Physician Addendum: I was working in the ER during the course of this patient's visit. I was available for consultation as needed, but I was not directly involved in the care of this patient. Dragon Disclaimer Dragon Disclaimer This electronic medical record was generated, in whole or in part, using a voice recognition dictation system. Departure Departure Impression: Primary Impression: Right shoulder strain Disposition: HOME, SELF-CARE Condition: STABLE Referrals: NO PCP (PCP) TAWNY BARTLETT MD, SHAWN J APRN Mar 27, 2018 11:14 FRANCISCA BETH MD Mar 27, 2018 15:22
== END 2018-03-27 11:27 | disposition home or self-care (01) ==
LOC: ER 09:40
DX: S46.811A Strain of other muscles, fascia and tendons at shoulder and upper arm level, right arm, initial encounter (principal); I10 Essential (primary) hypertension; X50.1XXA Overexertion from prolonged static or awkward postures, initial encounter; Y93.89 Activity, other specified; Y92.89 Other specified places as the place of occurrence of the external cause; Y99.8 Other external cause status
CPT/HCPCS: 73030; 99283

== ENCOUNTER 2018-07-20 16:02 | Emergency (ER) | payer OTHER ==
[~2018-07-20] VITALS: Ht 167.6 cm; Wt 89.4 kg
--- NOTE | 2018-07-20 17:36 | PHYS DOC ---
Past Medical History Past Medical History: No Pertinent History, Hypertension, Other Additional Past Medical Histor: back pain, preeclampsia Past Surgical History: Other Additional Past Surgical Histo: D&C Alcohol Use: None Drug Use: None Adult General Chief Complaint Chief Complaint: MECHANICAL FALL HPI HPI 38-year-old female presents to ER via POV for complaints of right knee and left ankle pain after she slipped last night while carrying a mattress causing her to fall backwards twisting her extremities. She denies striking her head or having any head, neck, or back pain. She reports she woke today and is having pain to her right knee with swelling. She reports his left ankle is also sore denies swelling. She denies any abrasions, bruising, or other injuries. She reports she has taken ibuprofen denies ice pack application to affected areas. She reports she has been ambulatory with no assistive device. Review of Systems Review of Systems Constitutional: Denies LOC HENT: Denies head pain or injury Respiratory: Denies cough or shortness of breath [] Cardiovascular: Denies CP GI: Denies abdominal pain, nausea, vomiting, or incontinence : Denies urinary sxs Musculoskeletal: Denies back/neck pain. Reports lt ankle and rt knee pain w/ swelling at rt knee Integument: Denies abrasions/bruising Neurologic: Denies headache, focal weakness or sensory changes. Denies numbness/ tingling All other systems were reviewed and found to be within normal limits, except as documented in this note. Allergies Allergies Allergies Coded Allergies Type Severity Reaction Last Updated Verified No Known Drug Allergies 08/20/14 No Physical Exam Physical Exam Constitutional: Well developed, well nourished, no acute distress, non-toxic appearance. [] HENT: Normocephalic, atraumatic, oropharynx moist, nose normal. [] Eyes: Pupils equal, conjunctiva normal, no discharge. [] Neck: Normal range of motion, no tenderness, supple Cardiovascular:Heart rate regular Lungs & Thorax: Resp. equal/nonlabored Skin: Warm, dry Back: Full ROM Extremities: No cyanosis, no clubbing, ROM intact. 2+ bilat. dorsalis pedis/ posterior tibial. No calf tenderness bilat. Tender on palp. lt lateral/medial malleolus without swelling/ecchymosis- ROM intact but does report pain w/ movements. No tenderness on palp. of lt foot/calcaneus. Tender on palp. anterior rt patella with soft tissue swelling- no abrasions/ecchymosis. Able to perform ROM but does report pain with movements. No palp. deformity bilat. LEs. Neurologic: Alert and oriented X 3, normal motor function, normal sensory function, no focal deficits noted. [] Psychologic: Affect normal, judgement normal, mood normal. [] Current Patient Data Vital Signs Vital Signs Date Time Temp Pulse Resp B/P (MAP) Pulse Ox O2 Delivery O2 Flow Rate FiO2 07/20/18 16:28 98.2 91 16 136/77 (96) 98 Room Air 98.2 EKG EKG [] Radiology/Procedures Radiology/Procedures [] Course & Med Decision Making Course & Med Decision Making Pertinent Imaging studies reviewed. (See chart for details) 1725: Pt's xrays were viewed by Dr. Curry with no obvious acute findings. This was discussed with patient. Patient remains PMS intact in all extremities. She continues to deny any head, neck, or back pain. Discussed plans for Epi wrap to right knee and left ankle. Discussed if symptoms persist patient follow-up with orthopedics for reevaluation and further care will provide referral information on discharge paperwork. Rice acronym was discussed. Patient advised on use of Tylenol and/or ibuprofen for pain.Education provided on signs and symptoms to return to ER. Discharge instructions were discussed. Patient to follow-up with primary care physician and/or orthopedic doctor if symptoms persist or with any concerns. Dragon Disclaimer Dragon Disclaimer This electronic medical record was generated, in whole or in part, using a voice recognition dictation system. Departure Departure Impression: Primary Impression: Left ankle sprain Additional Impression: Right knee sprain Disposition: HOME, SELF-CARE Condition: STABLE Referrals: NO PCP (PCP) HAMLET KENT MD Patient Instructions: Ankle Sprain, Knee Sprain, Knee Wraps (Elastic Bandage) and RICE Additional Instructions: Tylenol and/or ibuprofen as directed on container as needed for pain relief. Wear epi wraps to help support left ankle and right knee when walking. Remove wrap multiple times a day and monitor skin. If symptoms persist follow-up with your primary care physician and/or orthopedic doctor for reevaluation and further care. Problem Qualifiers JUDE DEL RIO APRN Jul 20, 2018 17:36
[2018-07-20 17:41] VITALS: BP 119/62
--- NOTE | 2018-07-21 07:59 | RAD ---
Examination: KNEE RIGHT 3V History: FELL LAST NIGHT, RIGHT KNEE PAIN Comparison/Correlation: None Findings: Total 3 images of the right knee were obtained. Small joint effusion is present. Joint spaces are unremarkable. No acute fracture or bony destruction. No definite degenerative change. Impression: Small knee joint effusion. Electronically signed by: Manjinder Randall MD (07/21/2018 7:56 AM) [facility]
--- NOTE | 2018-07-21 08:00 | RAD ---
Examination: ANKLE LEFT 3V History: FELL LAST NIGHT, ANKLE PAIN Comparison/Correlation: None Findings: Total 3 images of the left ankle were obtained. Joint spaces are unremarkable. Linear bony density at the distal, superficial margin of the Achilles tendon is present. No conclusive fracture. No definite soft tissue swelling. Impression: No definite fracture. Electronically signed by: Manjinder Randall MD (07/21/2018 7:58 AM) [facility]
== END 2018-07-20 17:41 | disposition home or self-care (01) ==
LOC: ER 16:02
DX: S93.492A Sprain of other ligament of left ankle, initial encounter (principal); S83.8X1A Sprain of other specified parts of right knee, initial encounter; I10 Essential (primary) hypertension; W01.0XXA Fall on same level from slipping, tripping and stumbling without subsequent striking against object, initial encounter; Y93.89 Activity, other specified; Y92.89 Other specified places as the place of occurrence of the external cause; Y99.8 Other external cause status
CPT/HCPCS: 73562; 73610; 99283; 99284

== ENCOUNTER 2019-07-18 14:38 | Emergency (ER) | payer OTHER ==
[~2019-07-18] VITALS: Ht 165.1 cm; Wt 92.2 kg
[~2019-07-18 14:38] MED LIST changes: -CETI10TA22 PO; +CETI10TA24 PO
[2019-07-18 14:50] VITALS: BP 168/77
[2019-07-18] MEDS ORDERED: HYDR-3164 PO (15:10)
[2019-07-18] MEDS ORDERED: METH4TAB2 PO (15:10)
[2019-07-18] MEDS ORDERED: ORPH100T PO (15:10)
--- NOTE | 2019-07-18 15:11 | PHYS DOC ---
Past Medical History Past Medical History: No Pertinent History, Hypertension, Other Additional Past Medical Histor: back pain, preeclampsia Past Surgical History: Other Additional Past Surgical Histo: D&C Smoking Status: Current Every Day Smoker Alcohol Use: None Drug Use: None General Adult EDM: Chief Complaint: BACK PAIN - NO INJURY HPI: HPI: Patient is a 39 year old female who presents with states that she has a bulging disc in her L4 and L5. She states she will get back pains chronically and usually she can just take Tylenol and use [id number] lidocaine patches and she will be fine. She states that she called her primary care doctor's office which is at [facility] and her doctors on maternity leave and there was no one that could see her. 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 She states that this past Wednesday she awoke and was having a hard time moving around and every time she would go from sitting to standing it was very painful. She has low back sharp pain that will radiate down the left buttock. Patient did drive herself here today. She rates her pain a 9 out of 10 especially with movement. Review of Systems: Review of Systems: Musculoskeletal: low back pain or joint pain. [] Heart Score: Risk Factors: Risk Factors: DM, Current or recent (<one month) smoker, HTN, HLP, family history of CAD, obesity. Risk Scores: Score 0 - 3: 2.5% MACE over next 6 weeks - Discharge Home Score 4 - 6: 20.3% MACE over next 6 weeks - Admit for Clinical Observation Score 7 - 10: 72.7% MACE over next 6 weeks - Early Invasive Strategies Allergies: Allergies: Allergies Coded Allergies Type Severity Reaction Last Updated Verified No Known Drug Allergies 08/20/14 No Physical Exam: PE: Constitutional: Well developed, well nourished, no acute distress, non-toxic appearance. [] HENT: Normocephalic, atraumatic, bilateral external ears normal, oropharynx moist, no oral exudates, nose normal. [] Eyes: PERRLA, EOMI, conjunctiva normal, no discharge. [] Neck: Normal range of motion, no tenderness, supple, no stridor. [] Cardiovascular:Heart rate regular rhythm, no murmur [] Lungs & Thorax: Bilateral breath sounds clear to auscultation [] Abdomen: Bowel sounds normal, soft, no tenderness, no masses, no pulsatile masses. [] Skin: Warm, dry, no erythema, no rash. [] Back: left low back tenderness, no CVA tenderness. [] Extremities: No tenderness, no cyanosis, no clubbing, ROM intact, no edema. [] Neurologic: Alert and oriented X 3, normal motor function, normal sensory function, no focal deficits noted. [] Psychologic: Affect normal, judgement normal, mood normal. [] EKG: EKG: [] Radiology/Procedures: Radiology/Procedures: [] Course & Med Decision Making: Course & Med Decision Making Pertinent Labs and Imaging studies reviewed. (See chart for details) Denies numbness or tingling. Alert and oriented. Ambulatory with a steady gait but she is slightly limping on the left leg due to the pain shooting down into her left buttock. No saddle paresthesia. No loss of bowel or bladder. Patient states she does not remember injuring her back specifically but she does do heavy lifting for her job. [] Dragon Disclaimer: Jose Armando Disclaimer: This electronic medical record was generated, in whole or in part, using a voice recognition dictation system. Departure Departure Impression: Primary Impression: Back pain with left-sided sciatica Disposition: HOME, SELF-CARE Condition: STABLE Referrals: NO PCP (PCP) Patient Instructions: Back Pain, Adult, Sciatica with Rehab-SportsMed Additional Instructions: Take medications as prescribed and with food. Do not drink any alcohol, drive or operate any heavy machinery while taking these medications. Follow-up with your primary care provider. Drink plenty of fluids. Scripts Orphenadrine Citrate (ORPHENADRINE CITRATE) 100 Mg Tablet.er 1 TAB PO BID, #14 TAB Prov: CESAR CACERES OUTSIDE SALES ACCOUNT EXECUTIVE 07/18/19 Methylprednisolone (MEDROL) 4 Mg Tab.ds.pk 1 PKG PO UD, #1 PKG Prov: BAFUSDELLAA M OUTSIDE SALES ACCOUNT EXECUTIVE 07/18/19 Hydrocodone/Apap 5-325 (NORCO 5-325 TABLET) 1 Each Tablet 1 TAB PO PRN Q6HRS PRN for PAIN, #12 TAB 0 Refills Prov: BAFDELLA HUNTERA Daniella OUTSIDE SALES ACCOUNT EXECUTIVE 07/18/19 BAFUSDELLAA M OUTSIDE SALES ACCOUNT EXECUTIVE Jul 18, 2019 15:11
[2019-07-18 15:16] LABS: BILIRUBIN,URINE NEGATIVE (NEG); CLARITY,URINE CLEAR; COLOR,URINE YELLOW; NITRITE,URINE NEGATIVE (NEG); PH,URINE 6.5 (<5.0-8.0); PROTEIN,URINE NEGATIVE (NEG-TRACE); UROBILINOGEN,URINE 0.2 mg/dL (0.2 mg/dL)
[2019-07-18 15:26] LABS: BACTERIA,URINE MODERATE /HPF (0-FEW); RBC,URINE RARE /HPF (0-2); SQUAMOUS EPITHELIAL CELL,UR MANY /LPF; WBC,URINE OCC /HPF (0-4)
[2019-07-18 15:39] LABS: U PREG PATIENT NEGATIVE (NEG)
== END 2019-07-18 16:00 | disposition home or self-care (01) ==
LOC: ER 14:38
DX: M54.42 Lumbago with sciatica, left side (principal); I10 Essential (primary) hypertension; F17.200 Nicotine dependence, unspecified, uncomplicated; Z98.890 Other specified postprocedural states
CPT/HCPCS: 81001; 81025; 87086; 99283

== ENCOUNTER 2020-03-08 13:14 | Emergency (ER) | payer SELFPAY ==
[~2020-03-08] VITALS: Ht 165.1 cm; Wt 85.0 kg
[~2020-03-08 13:14] MED LIST changes: -CETI10TA24 PO; +CETI10TA74 PO; +METH4TAB2 PO
[2020-03-08] MEDS ORDERED: KETOROLAC 60 MG/2 ML VIAL. IM ONE (13:30)
[2020-03-08] MEDS ORDERED: ORPHENADRINE CITRATE 60 MG/2 ML VIAL. IM ONE (13:30)
[2020-03-08 13:35] VITALS: BP 155/81
--- NOTE | 2020-03-08 13:40 | PHYS DOC ---
Past Medical History Past Medical History: No Pertinent History, Anemia Additional Past Medical Histor: 3 brain aneurysms, has had brain stent placed for 6 months Past Surgical History: Other Additional Past Surgical Histo: D&C Smoking Status: Current Every Day Smoker Alcohol Use: Occasionally Drug Use: None General Adult EDM: Chief Complaint: BACK INJURY HPI: HPI: Patient is a 39 year old female who presents with dropped her children off at her in-laws house when the last wooden stair was covered with leaves and she did not know it was there and she slipped and fell landing on the stairs and states that she broke the stair. She now has mid lower focal bony spinal lumbar tenderness and pain especially with movement or sitting and standing, right lateral humerus pain. She rates her pain a 7 out of 10. She states she has been taking Tylenol and ibuprofen yesterday and last night. States she last took Tylenol this morning at 0730. Denies loss of bowel or bladder, numbness or tingling, focal weakness. No saddle paresthesias. Patient does have some chronic low back pain. She also has a history of 3 brain aneurysms, stent placed 6 months ago, anemia, D&C, smoker. Review of Systems: Review of Systems: Constitutional: Denies fever or chills. [] Eyes: Denies change in visual acuity. [] HENT: Denies nasal congestion or sore throat. [] Respiratory: Denies cough or shortness of breath. [] Cardiovascular: Denies chest pain or edema. [] GI: Denies abdominal pain, nausea, vomiting, bloody stools or diarrhea. [] : Denies dysuria. [] Musculoskeletal: + Lumbar back pain or + right humerus joint pain. [] Integument: Denies rash. + Small bruise to the right lateral thigh [] Neurologic: Denies headache, focal weakness or sensory changes. [] Endocrine: Denies polyuria or polydipsia. [] Lymphatic: Denies swollen glands. [] Psychiatric: Denies depression or anxiety. [] Heart Score: Risk Factors: Risk Factors: DM, Current or recent (<one month) smoker, HTN, HLP, family history of CAD, obesity. Risk Scores: Score 0 - 3: 2.5% MACE over next 6 weeks - Discharge Home Score 4 - 6: 20.3% MACE over next 6 weeks - Admit for Clinical Observation Score 7 - 10: 72.7% MACE over next 6 weeks - Early Invasive Strategies Current Medications: Current Medications Medications (Trade) Dose Ordered Sig/Chase Start Time Stop Time Status Last Admin Dose Admin Ketorolac Tromethamine (Toradol Im) 60 mg 1X ONCE 03/08/20 13:30 03/08/20 13:31 UNV Orphenadrine Citrate (Norflex) 60 mg 1X ONCE 03/08/20 13:30 03/08/20 13:31 UNV Allergies: Allergies: Allergies Coded Allergies Type Severity Reaction Last Updated Verified No Known Drug Allergies 08/20/14 No Physical Exam: PE: Constitutional: Well developed, well nourished, no acute distress, non-toxic appearance. [] HENT: Normocephalic, atraumatic, bilateral external ears normal, oropharynx moist, no oral exudates, nose normal. [] Eyes: PERRLA, EOMI, conjunctiva normal, no discharge. [] Neck: Normal range of motion, no tenderness, supple, no stridor. [] Cardiovascular:Heart rate regular rhythm, no murmur [] Lungs & Thorax: Bilateral breath sounds clear to auscultation [] Abdomen: Bowel sounds normal, soft, no tenderness, no masses, no pulsatile masses. [] Skin: Warm, dry, no erythema, no rash. Bruising to the right lateral thigh [] Back: Focal bony spinal lumbar tenderness, no CVA tenderness. [] Extremities: Lateral humerus tenderness, no cyanosis, no clubbing, ROM intact, no edema. [] Neurologic: Alert and oriented X 3, normal motor function, normal sensory function, no focal deficits noted. [] Psychologic: Affect normal, judgement normal, mood normal. [] EKG: EKG: [] Radiology/Procedures: Radiology/Procedures: [] Impression: [facility] [address] [place] [address] IMAGING REPORT Signed PATIENT: JUDE MCBRIDE ACCOUNT: [id number] : 1980 LOCATION: ER AGE: 39 SEX: F EXAM STATUS: PRE ER ORD. PHYSICIAN: CESAR CACERES APRN REASON: FALL, PAIN TO LATERAL HUMERUS PROCEDURE: HUMERUS RIGHT HUMERUS RIGHT 03/08/2020 1:26 PM INDICATION: Fall, pain to the lateral humerus COMPARISON: None available. TECHNIQUE: 2 views of the right humerus are provided. FINDINGS/ IMPRESSION: There is no acute fracture or dislocation. Joint spaces are maintained. Bone mineralization is within normal limits. Regional soft tissues are within normal limits. There is no soft tissue gas or osseous erosion. No radiopaque foreign body. Electronically signed by: Trinidad Thomas MD (03/08/2020 1:49 PM) [facility] DICTATED and SIGNED BY: TRINIDAD THOMAS MD DATE: 03/08/20 [id number] 0 [facility] [address] [place] [address] IMAGING REPORT Signed PATIENT: JUDE MCBRIDE ACCOUNT: [id number] : 1980 LOCATION: ER AGE: 39 SEX: F EXAM STATUS: REG ER ORD. PHYSICIAN: CESAR CACERES APRN REASON: PAIN TO LUMBAR FOCAL SPINE WITH TENDERNESS PROCEDURE: CT LUMBAR SPINE WO CONTRAST CT lumbar spine without contrast. HISTORY: Pain to lumbar spine with tenderness, fall Axial CT images were obtained through the lumbar spine. Sagittal and coronal reconstructed images were reviewed. There is mild lower lumbar facet arthritis. Lung bases are clear. There is no retroperitoneal adenopathy. There is no renal calculus or hydronephrosis. There is degenerative disc disease at L5-S1 with disc space narrowing and hypertrophic changes. The T12-L1, L1-2 and L2-3 discs are unremarkable. There is diffuse bulging of the disc at L3-4 with mild ligamentous and facet hypertrophy at L3-4 but without central spinal stenosis. There is diffuse bulging of the disc with ligamentous and facet hypertrophy and lateral recess stenosis at L4-5 with mild central narrowing of the canal. There is spurring and facet hypertrophy at L5-S1. There is disc space narrowing at L5-S1. There is left lateral recess stenosis secondary to the spurring at L5-S1. IMPRESSION: 1. Degenerative disc disease at L5-S1 with left lateral recess stenosis. 2. Bulging of the disc with ligamentous and facet hypertrophy with mild lateral recess narrowing and central narrowing at L4-5. 3. Mild bulging of the disc with ligamentous and facet hypertrophy at L3-4. 4. No acute lumbar fracture. PQRS Compliance Statement: One or more of the following individualized dose reduction techniques were utilized for this examination: 1. Automated exposure control 2. Adjustment of the mA and/or kV according to patient size 3. Use of iterative reconstruction technique Electronically signed by: Eitan Stapleton MD (03/08/2020 2:19 PM) [facility] DICTATED and SIGNED BY: EITAN STAPLETON MD DATE: 03/08/20 [id number] 0 Course & Med Decision Making: Course & Med Decision Making Pertinent Labs and Imaging studies reviewed. (See chart for details) See HPI. Alert and oriented x4. Ambulatory with a steady gait but slow. No focal extremity weakness. Speaks in full complete sentences. Skin pink warm and dry. No bruising, deformity, swelling to the spine or to the right humerus. She does have a small hematoma to the lateral right thigh. Redness to the lateral right humerus she states it hurts more so with movement. But there is no deformity. Focal bony spinal tenderness to the lower lumbar spine. Patient is given Toradol and orphenadrine in the ED. Pedal pulse and right radial strong and present. Full range of motion of all joints. CT shows no acute findings but some chronic bulging disc findings. [] Jose Armando Disclaimer: Jose Armando Disclaimer: This electronic medical record was generated, in whole or in part, using a voice recognition dictation system. Departure Departure Impression: Primary Impression: Fall Qualified Codes: W19.XXXA - Unspecified fall, initial encounter Additional Impressions: Lumbar pain Arm pain Qualified Codes: M79.601 - Pain in right arm Disposition: 01 DC HOME SELF CARE/HOMELESS Condition: STABLE Referrals: NO PCP (PCP) Patient Instructions: Contusion, Lumbosacral Strain Additional Instructions: Follow-up with primary care physician if needed. Take medication as prescribed. Rest. Scripts Methylprednisolone (MEDROL) 4 Mg Tab.ds.pk 1 PKG PO UD, #1 PKG Prov: CESAR CACERES SWEAT BAND SEPARATOR 03/08/20 Hydrocodone/Apap 5-325 (NORCO 5-325 TABLET) 1 Each Tablet 1 TAB PO PRN Q6HRS PRN for PAIN, #12 TAB 0 Refills Prov: CESAR CACERES APRN 03/08/20 Orphenadrine Citrate (ORPHENADRINE CITRATE) 100 Mg Tablet.er 1 TAB PO BID, #14 TAB Prov: CESAR CACERES APRN 03/08/20 CESAR CACERES APRN Mar 08, 2020 13:40
--- NOTE | 2020-03-08 13:51 | RAD ---
HUMERUS RIGHT 03/08/2020 1:26 PM INDICATION: Fall, pain to the lateral humerus COMPARISON: None available. TECHNIQUE: 2 views of the right humerus are provided. FINDINGS/ IMPRESSION: There is no acute fracture or dislocation. Joint spaces are maintained. Bone mineralization is within normal limits. Regional soft tissues are within normal limits. There is no soft tissue gas or osseous erosion. No radiopaque foreign body. Electronically signed by: Laura Jaquez MD (03/08/2020 1:49 PM) [facility]
[2020-03-08 13:53] LABS: BILIRUBIN,URINE NEGATIVE (NEG); CLARITY,URINE CLEAR; COLOR,URINE YELLOW; NITRITE,URINE NEGATIVE (NEG); PROTEIN,URINE NEGATIVE (NEG-TRACE); UROBILINOGEN,URINE 0.2 mg/dL (0.2 mg/dL)
[2020-03-08 13:58] LABS: BACTERIA,URINE FEW /HPF (0-FEW)
--- NOTE | 2020-03-08 14:22 | RAD ---
CT lumbar spine without contrast. HISTORY: Pain to lumbar spine with tenderness, fall Axial CT images were obtained through the lumbar spine. Sagittal and coronal reconstructed images were reviewed. There is mild lower lumbar facet arthritis. Lung bases are clear. There is no retroperitoneal adenopathy. There is no renal calculus or hydronephrosis. There is degenerative disc disease at L5-S1 with disc space narrowing and hypertrophic changes. The T12-L1, L1-2 and L2-3 discs are unremarkable. There is diffuse bulging of the disc at L3-4 with mild ligamentous and facet hypertrophy at L3-4 but without central spinal stenosis. There is diffuse bulging of the disc with ligamentous and facet hypertrophy and lateral recess stenosis at L4-5 with mild central narrowing of the canal. There is spurring and facet hypertrophy at L5-S1. There is disc space narrowing at L5-S1. There is left lateral recess stenosis secondary to the spurring at L5-S1. IMPRESSION: 1. Degenerative disc disease at L5-S1 with left lateral recess stenosis. 2. Bulging of the disc with ligamentous and facet hypertrophy with mild lateral recess narrowing and central narrowing at L4-5. 3. Mild bulging of the disc with ligamentous and facet hypertrophy at L3-4. 4. No acute lumbar fracture. PQRS Compliance Statement: One or more of the following individualized dose reduction techniques were utilized for this examination: 1. Automated exposure control 2. Adjustment of the mA and/or kV according to patient size 3. Use of iterative reconstruction technique Electronically signed by: Eitan Stapleton MD (03/08/2020 2:19 PM) [facility]
[2020-03-08] MEDS ORDERED: methylPREDNISolone SOD SUCC PF 125 MG/2 ML VIAL. IV ONE (14:45)
[2020-03-08] MEDS ORDERED: cefTRIAXone IV Push 1 GM VIAL. IVP ONE (14:45)
[2020-03-08] MEDS ORDERED: HYDR-3164 PO (14:51)
[2020-03-08] MEDS ORDERED: ORPH100T PO (14:51)
[2020-03-08] MEDS ORDERED: METH4TAB2 PO (14:51)
[2020-03-08] MEDS ORDERED: methylPREDNISolone SOD SUCC PF 125 MG/2 ML VIAL. IM ONE (15:45)
== END 2020-03-08 16:01 | disposition home or self-care (01) ==
LOC: ER 13:14
DX: S70.11XA Contusion of right thigh, initial encounter (principal); M54.5 Low back pain; G89.29 Other chronic pain; M25.511 Pain in right shoulder; M51.37 Other intervertebral disc degeneration, lumbosacral region; F17.200 Nicotine dependence, unspecified, uncomplicated; Z95.5 Presence of coronary angioplasty implant and graft; W01.0XXA Fall on same level from slipping, tripping and stumbling without subsequent striking against object, initial encounter; Y93.89 Activity, other specified; Y92.89 Other specified places as the place of occurrence of the external cause; Y99.8 Other external cause status
CPT/HCPCS: 72131; 73060; 81001; 81025; 87086; 96372; 99284; J1885; J2360; J2930

== ENCOUNTER 2020-04-07 15:56 | Emergency (ER) | payer SELFPAY ==
[~2020-04-07] VITALS: Ht 165.1 cm; Wt 89.0 kg
[2020-04-07] MEDS ORDERED: HYDROcodone/APAP 5/325MG 1 TAB TABLET PO ONE (16:15)
[2020-04-07] MEDS ORDERED: ORPHENADRINE CITRATE 60 MG/2 ML VIAL. IM ONE (16:15)
[2020-04-07 16:18] VITALS: BP 141/92
[2020-04-07] MEDS ORDERED: METH4TAB2 PO (16:27)
[2020-04-07] MEDS ORDERED: ORPH100T PO (16:27)
[2020-04-07] MEDS ORDERED: HYDR-3164 PO (16:27)
--- NOTE | 2020-04-07 16:27 | PHYS DOC ---
Past Medical History Past Medical History: Anemia Additional Past Medical Histor: 3 brain aneurysms, has had brain stent placed for 6 months Past Surgical History: Other Additional Past Surgical Histo: D&C Smoking Status: Current Every Day Smoker Alcohol Use: Occasionally Drug Use: None General Adult EDM: Chief Complaint: BACK PAIN OR INJURY HPI: HPI: Patient is a 39 year old female who presents with had a fall and injured her back back in March 08. At that time a CT was done and that showed bulging disks. 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 She states there is no sharp shooting pain. She states she has no burning with urination or any other urinary symptoms. She denies fever, abdominal pain, nausea, vomiting, chest pain, shortness of air, headache, numbness or tingling, loss of bowel bladder, focal weakness, vision changes, dizziness. Patient has a history of anemia, brain aneurysm with brain stent and is a smoker. Patient is rating her pain a 10 out of 10. Review of Systems: Review of Systems: Constitutional: Denies fever or chills. [] Eyes: Denies change in visual acuity. [] HENT: Denies nasal congestion or sore throat. [] Respiratory: Denies cough or shortness of breath. [] Cardiovascular: Denies chest pain or edema. [] GI: Denies abdominal pain, nausea, vomiting, bloody stools or diarrhea. [] : Denies dysuria. [] Musculoskeletal: + Bilateral lower back pain or denies joint pain. [] Integument: Denies rash. [] Neurologic: Denies headache, focal weakness or sensory changes. [] Endocrine: Denies polyuria or polydipsia. [] Lymphatic: Denies swollen glands. [] Psychiatric: Denies depression or anxiety. [] Heart Score: Risk Factors: Risk Factors: DM, Current or recent (<one month) smoker, HTN, HLP, family history of CAD, obesity. Risk Scores: Score 0 - 3: 2.5% MACE over next 6 weeks - Discharge Home Score 4 - 6: 20.3% MACE over next 6 weeks - Admit for Clinical Observation Score 7 - 10: 72.7% MACE over next 6 weeks - Early Invasive Strategies Current Medications: Current Medications Medications (Trade) Dose Ordered Sig/Chase Start Time Stop Time Status Last Admin Dose Admin Acetaminophen/ Hydrocodone Bitart (Lortab 5/325) 1 tab 1X ONCE 04/07/20 16:15 04/07/20 16:16 Orphenadrine Citrate (Norflex) 60 mg 1X ONCE 04/07/20 16:15 04/07/20 16:16 Allergies: Allergies: Allergies Coded Allergies Type Severity Reaction Last Updated Verified No Known Drug Allergies 08/20/14 No Physical Exam: PE: Constitutional: Well developed, well nourished, no acute distress, non-toxic appearance. [] HENT: Normocephalic, atraumatic, bilateral external ears normal, oropharynx moist, no oral exudates, nose normal. [] Eyes: PERRLA, EOMI, conjunctiva normal, no discharge. [] Neck: Normal range of motion, no tenderness, supple, no stridor. [] Cardiovascular:Heart rate regular rhythm, no murmur [] Lungs & Thorax: Bilateral breath sounds clear to auscultation [] Abdomen: Bowel sounds normal, soft, no tenderness, no masses, no pulsatile masses. [] Skin: Warm, dry, no erythema, no rash. [] Back: Bilateral lower back tenderness, no CVA tenderness. [] Extremities: No tenderness, no cyanosis, no clubbing, ROM intact, no edema. [] Neurologic: Alert and oriented X 3, normal motor function, normal sensory function, no focal deficits noted. [] Psychologic: Affect normal, judgement normal, mood normal. [] EKG: EKG: [] Radiology/Procedures: Radiology/Procedures: [] Impression: [facility] [address] [place], [place] [id number] IMAGING REPORT Signed PATIENT: JUDE MCBRIDE ACCOUNT: [id number] : 1980 LOCATION: ER AGE: 39 SEX: F EXAM STATUS: REG ER ORD. PHYSICIAN: CESAR CACERES APRN REASON: LOWER BACK PAIN WITH RADIC. HX OF NUMEROUS HERNIATED DISCS PROCEDURE: LUMBAR SPINE MIN 4V Exam: Lumbar spine 4 views INDICATION: Lower back pain with radiculopathy TECHNIQUE: Frontal, lateral and bilateral oblique views of the lumbar spine Comparisons: None FINDINGS: Vertebral body heights and alignment are well-maintained. There is mild diffuse bilateral facet arthropathy. No significant degenerative disc disease. Visualized paraspinal soft tissues are unremarkable. IMPRESSION: Mild spondylotic changes lumbar spine as described above. Electronically signed by: Galindo Jamison MD (04/07/2020 5:18 PM) [facility] DICTATED and SIGNED BY: GALINDO JAMISON MD DATE: 04/07/20 [id number] 0 Course & Med Decision Making: Course & Med Decision Making Pertinent Labs and Imaging studies reviewed. (See chart for details) See HPI. Ambulatory with a steady gait. Speaks in full clear sentences. Moves all extremities equally with equal strengths. No numbness or tingling, no sad dle paresthesia. Alert and oriented x4. Patient is given dexamethasone, orphenadrine and [place] in the ED. On March [address] showed: IMPRESSION: 1. Degenerative disc disease at L5-S1 with left lateral recess stenosis. 2. Bulging of the disc with ligamentous and facet hypertrophy with mild lateral recess narrowing and central narrowing at L4-5. 3. Mild bulging of the disc with ligamentous and facet hypertrophy at L3-4. 4. No acute lumbar fracture. [] Dragon Disclaimer: Dragtres Disclaimer: This electronic medical record was generated, in whole or in part, using a voice recognition dictation system. Departure Departure Impression: Primary Impression: Low back pain Qualified Codes: M54.5 - Low back pain Disposition: 01 DC HOME SELF CARE/HOMELESS Condition: STABLE Referrals: NO PCP (PCP) MUNDO MURPHY MD Patient Instructions: Low Back Strain with Rehab-SportsMed Additional Instructions: Follow-up with primary care provider soon as possible. Use a heating pad 20 minutes off 20 minutes on. Rest. Take medication as ordered. Scripts Hydrocodone/Apap 5-325 (NORCO 5-325 TABLET) 1 Each Tablet 1 TAB PO PRN Q6HRS PRN for PAIN, #12 TAB 0 Refills Prov: CESAR CACERES COMMERCIAL SPECIALIST 04/07/20 Orphenadrine Citrate (ORPHENADRINE CITRATE) 100 Mg Tablet.er 1 TAB PO BID, #15 TAB Prov: BAFCESAR HUNTER APRN 04/07/20 Methylprednisolone (MEDROL) 4 Mg Tab.ds.pk 1 PKG PO UD, #1 PKG Prov: CESAR CACERES APRN 04/07/20 CESAR CACERES APRN Apr 07, 2020 16:27
[2020-04-07 16:28] LABS: BILIRUBIN,URINE NEGATIVE (NEG); CLARITY,URINE CLEAR; COLOR,URINE YELLOW; NITRITE,URINE NEGATIVE (NEG); PROTEIN,URINE NEGATIVE (NEG-TRACE); UROBILINOGEN,URINE 0.2 mg/dL (0.2 mg/dL)
[2020-04-07] MEDS ORDERED: DEXAMETHASONE 4 MG TABLET PO ONE (16:30)
[2020-04-07 16:35] LABS: BACTERIA,URINE MODERATE /HPF (0-FEW)
[2020-04-07 16:36] LABS: RBC,URINE 0 /HPF (0-2); WBC,URINE RARE /HPF (0-4)
--- NOTE | 2020-04-07 17:20 | RAD ---
Exam: Lumbar spine 4 views INDICATION: Lower back pain with radiculopathy TECHNIQUE: Frontal, lateral and bilateral oblique views of the lumbar spine Comparisons: None FINDINGS: Vertebral body heights and alignment are well-maintained. There is mild diffuse bilateral facet arthropathy. No significant degenerative disc disease. Visualiz ed paraspinal soft tissues are unremarkable. IMPRESSION: Mild spondylotic changes lumbar spine as described above. Electronically signed by: Galindo Peralta MD (04/07/2020 5:18 PM) [facility]
== END 2020-04-07 17:39 | disposition home or self-care (01) ==
LOC: ER 15:56
DX: M54.5 Low back pain (principal); D64.9 Anemia, unspecified; F17.200 Nicotine dependence, unspecified, uncomplicated; Z98.890 Other specified postprocedural states
CPT/HCPCS: 72110; 81001; 81025; 87086; 96372; 99284; J2360

== ENCOUNTER 2020-05-26 06:38 | Emergency (ER) | payer SELFPAY ==
[~2020-05-26] VITALS: Ht 165.1 cm; Wt 85.0 kg
--- NOTE | 2020-05-26 06:53 | PHYS DOC ---
Past Medical History Past Medical History: Anemia Additional Past Medical Histor: 3 brain aneurysms, has had brain stent placed for 6 months, BULGING DISCS Past Medical History Chronic back pain Past Surgical History: Other Additional Past Surgical Histo: D&C Smoking Status: Current Every Day Smoker Alcohol Use: Occasionally Drug Use: None General Adult EDM: Chief Complaint: LOWER BACK PAIN OR INJURY HPI: HPI: Patient is a 40 year old female who presents with lower back pain. 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 She presented to ER after a fall back in February, at which time CT imaging showed lumbar disk herniation. The pain improved for a period of time, but has been getting worse the past couple of days. Last night at work it became unbearable so pt drove herself to ER, pain is currently an 8/10. She only took Advil at midnight, and is not currently on anything else for pain. Notes some LLE parasthesias, but denies loss of bowel/bladder function, fever/chills. Notes some swelling and focal paraspinal tenderness in the lumbar region, worse on the left. Reports she is currently menopausal. Patient reports she drove herself here after work. Review of Systems: Review of Systems: Constitutional: Denies fever or chills Eyes: Denies redness or eye pain HENT: Denies nasal congestion or sore throat Respiratory: Denies cough or shortness of breath Cardiovascular: Denies chest pain or palpitations GI: Denies abdominal pain, nausea, or vomiting : Denies dysuria or hematuria Musculoskeletal: Reports left-sided low back pain worse on the left Integument: Denies rash or skin lesions Neurologic: Denies headache, focal weakness; LLE parasthesias reported; denies loss of bladder or bowel Complete systems were reviewed and found to be within normal limits, except as documented in this note. Family History: Family History: Grandmother - Ovarian Cancer Current Medications: Denies current medications Allergies: Allergies: Allergies Coded Allergies Type Severity Reaction Last Updated Verified No Known Drug Allergies 08/20/14 No Physical Exam: PE: Constitutional: Well developed, well nourished, appears uncomfortable, non-toxic appearance HENT: Normocephalic, atraumatic Eyes: PERRL, EOMI, conjunctiva normal, no discharge Neck: Normal range of motion, no tenderness, supple Lungs & Thorax: No respiratory distress, equal chest rise and fall Abdomen: Soft, no tenderness Skin: Warm, dry, no erythema, no rash Back: Lumbar paraspinal tenderness on left, no midline spinal tenderness noted/ Limited ROM. no CVA tenderness Extremities: No tenderness, ROM intact, slight LE edema b/l Neurologic: Alert and oriented X 3, normal motor function, normal sensory function, no focal deficits noted Psychologic: Affect normal, judgment normal EKG: EKG: [] Radiology/Procedures: Radiology/Procedures: [] Course & Med Decision Making: Course & Med Decision Making Patient presents with HPI and physical exam consistent for acute on chronic back pain. Patient was seen and examined. Is waiting on Insurance to kick in in June of this year in order to see specialist. Denies loss of bowel or bladder. Denies fever or chills. Denies trauma. No midline tenderness appreciated. Prescription for pain medication, muscle relaxer, and steroid will be given, as well as an injection for pain. [facility] report reviewed. Last narcotic prescription for pain from Mar 2020. No further imaging or laboratory studies were obtained secondary to chronic nature. Patient stable for discharge with outpatient follow-up with PCP/pain management/neurosurgery. Pain management and neurosurgery referrals provided. Discussed findings and plan with patient, who acknowledges understanding and agreement. Jose Armando Disclaimer: Jose Armando Disclaimer: This electronic medical record was generated, in whole or in part, using a voice recognition dictation system. Departure Departure Impression: Primary Impression: Acute exacerbation of chronic low back pain Disposition: 01 DC HOME SELF CARE/HOMELESS Condition: STABLE Referrals: NO PCP (PCP) MUNDO MURPHY MD, BRIAN N MD Patient Instructions: Chronic Back Pain, Chronic Pain Management Additional Instructions: ICE area of discomfort 20 min on then leave off next 20 mins. Repeat several times daily as needed for next few days. After 72 hours you may want to also introduce heat. May also use over the counter Ibuprofen for pain or discomfort. Scripts Hydrocodone Bit/Acetaminophen (HYDROCODONE-APAP 5-325 ) 1 Tab Tablet 0.5-1 TAB PO PRN Q6HRS PRN for PAIN, #14 TAB 0 Refills Prov: TIMOTEO ARMAS DO 05/26/20 Cyclobenzaprine Hcl (CYCLOBENZAPRINE HCL) 10 Mg Tablet 1 TAB PO TID PRN for MUSCLE PAIN, #21 TAB Prov: TIMOTEO ARMAS DO 05/26/20 Prednisone (PREDNISONE) 20 Mg Tablet 2 TAB PO DAILY, #10 TAB Prov: TIMOTEO ARMAS DO 05/26/20 TIMOTEO ARMAS DO May 26, 2020 06:53
[2020-05-26 07:21] VITALS: BP 147/89
[2020-05-26] MEDS ORDERED: PRED20TA PO (07:53)
[2020-05-26] MEDS ORDERED: HYDR-2761 PO (07:53)
[2020-05-26] MEDS ORDERED: CYCL10TA2 PO (07:53)
[2020-05-26] MEDS ORDERED: KETOROLAC 30 MG/ML VIAL. IM ONE (08:00)
== END 2020-05-26 08:01 | disposition home or self-care (01) ==
LOC: ER 06:38
DX: G89.29 Other chronic pain (principal); M54.5 Low back pain; D64.9 Anemia, unspecified; F17.200 Nicotine dependence, unspecified, uncomplicated; Z98.890 Other specified postprocedural states
CPT/HCPCS: 96372; 99283; J1885

== ENCOUNTER 2020-10-24 06:29 | Emergency (ER) | payer SELFPAY ==
[~2020-10-24] VITALS: Ht 167.6 cm; Wt 86.3 kg
[~2020-10-24 06:29] MED LIST changes: +HYDR-2761 PO
[2020-10-24] MEDS ORDERED: KETOROLAC 60 MG/2 ML VIAL. IM ONE (07:00)
[2020-10-24] MEDS ORDERED: methylPREDNISolone SOD SUCC PF 125 MG/2 ML VIAL. IM ONE (07:00)
[2020-10-24] MEDS ORDERED: ORPHENADRINE CITRATE 60 MG/2 ML VIAL. IM ONE (07:00)
[2020-10-24] MEDS ORDERED: methylPREDNISolone SOD SUCC PF 125 MG/2 ML VIAL. ONE (07:07)
[2020-10-24] MEDS ORDERED: ORPHENADRINE CITRATE 60 MG/2 ML VIAL. ONE (07:07)
--- NOTE | 2020-10-24 07:26 | RAD ---
XR LUMBAR SPINE 2-3V History: Low back pain. Comparison: X-ray 04/07/2020 CT lumbar spine 03/08/2020 Technique: 3 views of the lumbar spine. Findings: There are 5 non-rib bearing lumbar vertebral segments. There is no evidence of fracture. Alignment is normal. No destructive osseous lesions are seen. Mild lower lumbar facet hypertrophy. Moderate to severe L5-S1 disc space narrowing with endplate osteophytes and neural foraminal narrowin g. Findings similar to comparisons. Sacroiliac joints are unremarkable. Soft tissues are unremarkable. IMPRESSION: 1. Degenerative changes of the lower lumbar spine. No acute osseous abnormality. Electronically signed by: Timur Pavon MD (10/24/2020 7:24 AM) [facility]
[2020-10-24 08:00] VITALS: BP 108/68
[2020-10-24] MEDS ORDERED: CYCL10TA2 PO (08:06)
[2020-10-24] MEDS ORDERED: NAPR-682 PO (08:06)
[2020-10-24] MEDS ORDERED: PRED20TA PO (08:06)
[2020-10-24] MEDS ORDERED: TRAM50TA PO (08:06)
--- NOTE | 2020-10-24 08:07 | PHYS DOC ---
Past Medical History Past Medical History: Anemia Additional Past Medical Histor: 3 brain aneurysms, has had brain stent placed for 6 months, BULGING DISCS Past Surgical History: Other Additional Past Surgical Histo: D&C Smoking Status: Current Every Day Smoker Alcohol Use: Occasionally Drug Use: None General Adult EDM: Chief Complaint: BACK PAIN - NO INJURY HPI: HPI: Patient is a 40 year old female who present to ER for evaluation of low back pain. Patient has history of chronic low back pain in the past. Patient was at work last night, was lifting a heavy box, started having low back pain. The pain can radiate to both of her buttocks. Denies any bowel or bladder incontinence.. Patient denies any weakness or numbness in her lower extremities. Patient denies any abdominal pain, no nausea vomiting. Patient denies any cough or fever. Review of Systems: Review of Systems: Constitutional: Denies fever or chills. [] Eyes: Denies change in visual acuity. [] HENT: Denies nasal congestion or sore throat. [] Respiratory: Denies cough or shortness of breath. [] Cardiovascular: Denies chest pain or edema. [] GI: Denies abdominal pain, nausea, vomiting, bloody stools or diarrhea. [] : Denies dysuria. [] Musculoskeletal: Positive for low back pain Integument: Denies rash. [] Neurologic: Denies headache, focal weakness or sensory changes. [] Endocrine: Denies polyuria or polydipsia. [] Lymphatic: Denies swollen glands. [] Psychiatric: Denies depression or anxiety. [] Heart Score: C/O Chest Pain: N/A Risk Factors: Risk Factors: DM, Current or recent (<one month) smoker, HTN, HLP, family history of CAD, obesity. Risk Scores: Score 0 - 3: 2.5% MACE over next 6 weeks - Discharge Home Score 4 - 6: 20.3% MACE over next 6 weeks - Admit for Clinical Observation Score 7 - 10: 72.7% MACE over next 6 weeks - Early Invasive Strategies Current Medications: Current Medications Medications (Trade) Dose Ordered Sig/Chase Start Time Stop Time Status Last Admin Dose Admin Ketorolac Tromethamine (Toradol Im) 60 mg 1X ONCE 10/24/20 07:00 10/24/20 07:07 DC 10/24/20 07:15 60 MG Methylprednisolone Sodium Succinate (SOLU-Medrol 125MG VIAL) 125 mg STK-MED ONCE 10/24/20 07:07 10/24/20 07:07 DC Orphenadrine Citrate (Norflex) 60 mg STK-MED ONCE 10/24/20 07:07 10/24/20 07:07 DC Allergies: Allergies: Allergies Coded Allergies Type Severity Reaction Last Updated Verified No Known Drug Allergies 08/20/14 No Physical Exam: PE: Constitutional: Well developed, well nourished, no acute distress, non-toxic appearance. [] HENT: Normocephalic, atraumatic, bilateral external ears normal, oropharynx moist, no oral exudates, nose normal. [] Eyes: PERRLA, EOMI, conjunctiva normal, no discharge. [] Neck: Normal range of motion, no tenderness, supple, no stridor. [] Cardiovascular:Heart rate regular rhythm, no murmur [] Lungs & Thorax: Bilateral breath sounds clear to auscultation [] Abdomen: Bowel sounds normal, soft, no tenderness, no masses, no pulsatile masses. [] Skin: Warm, dry, no erythema, no rash. [] Back: No tenderness, no CVA tenderness. [] Extremities: There is tenderness to palpation at L4 and L5 area, no midline vertebral body tenderness or step-off. Neurologic: Alert and oriented X 3, normal motor function, normal sensory function, no focal deficits noted. Good bilateral patellar reflexes Psychologic: Affect normal, judgement normal, mood normal. [] Current Patient Data: Labs: Laboratory Tests Test 10/24/20 06:53 POC Urine HCG, Qualitative Hcg negative (Negative) Vital Signs: Vital Signs Date Time Temp Pulse Resp B/P (MAP) Pulse Ox O2 Delivery O2 Flow Rate FiO2 10/24/20 07:22 98.7 79 19 140/93 (109) 97 Room Air 98.7 EKG: EKG: [] Radiology/Procedures: Radiology/Procedures: [][facility] [address] [place], [place] [id number] IMAGING REPORT Signed PATIENT: JUDE MCBRIDE ACCOUNT: [id number] : 1980 LOCATION: ER AGE: 40 SEX: F EXAM STATUS: REG ER ORD. PHYSICIAN: YURY VANG DO REASON: lower back pain PROCEDURE: LUMBAR SPINE 2-3V XR LUMBAR SPINE 2-3V History: Low back pain. Comparison: X-ray 04/07/2020 CT lumbar spine 03/08/2020 Technique: 3 views of the lumbar spine. Findings: There are 5 non-rib bearing lumbar vertebral segments. There is no evidence of fracture. Alignment is normal. No destructive osseous lesions are seen. Mild lower lumbar facet hypertrophy. Moderate to severe L5-S1 disc space narrowing with endplate osteophytes and neural foraminal narrowing. Findings similar to comparisons. Sacroiliac joints are unremarkable. Soft tissues are unremarkable. IMPRESSION: 1. Degenerative changes of the lower lumbar spine. No acute osseous abnormality. Electronically signed by: Timur Pavon MD (10/24/2020 7:24 AM) [facility] DICTATED and SIGNED BY: TIMUR PAVON MD DATE: 10/24/20 [id number] Course & Med Decision Making: Course & Med Decision Making Pertinent Labs and Imaging studies reviewed. (See chart for details) Patient is a 40 female who present to ER due to low back pain after lifting a box at work. X-ray did not show any acute problem. Patient exacerbated her chronic low back problem. Patient was given medication in the ED, patient was discharged home with prescription for medication to take at home. Patient was advised to follow-up with her family physician for outpatient reevaluation and she might need an MRI of her lumbar spine to evaluate for disks or nerve problem. Patient was amenable to plan of care Jose Armando Disclaimer: Jose Armando Disclaimer: This electronic medical record was generated, in whole or in part, using a voice recognition dictation system. Departure Departure Impression: Primary Impression: Lower back pain Disposition: HOME / SELF CARE / HOMELESS Condition: STABLE Referrals: NO PCP (PCP) Follow up with your family physician for outpatient revaluation next week. Please follow up with [facility] this week. [address], [address] [place], [place] [address] Patient Instructions: Back Pain, Adult Additional Instructions: Thank you for visiting our Emergency Department. We appreciate you trusting us with your care. If any additional problems come up don't hesitate to return to visit us. Please follow up with your primary care provider so they can plan additional care if needed and know about the problem that you had. If symptoms worsen come back to the Emergency Department. Any concerning symptoms that start such as chest pain, shortness of air, weakness or numbness on one side of the body, running high fevers or any other concerning symptoms return to the ER. Scripts Tramadol Hcl (TRAMADOL HCL) 50 Mg Tablet 50 MG PO Q6HRS PRN for PAIN, #20 TAB Prov: YURY VANG DO 10/24/20 Prednisone (PREDNISONE) 20 Mg Tablet 1 TAB PO DAILY for 7 Days, #7 TAB Prov: YURY VANG DO 10/24/20 Naproxen Sodium (ANAPROX DS) 550 Mg Tablet 1 TAB PO BID PRN for PAIN for 15 Days, #30 TAB 0 Refills Prov: YURY VANG DO 10/24/20 Cyclobenzaprine Hcl (CYCLOBENZAPRINE HCL) 10 Mg Tablet 1 TAB PO TID PRN for MUSCLE SPASMS, #30 TAB Prov: YURY VANG DO 10/24/20 YURY VANG DO Oct 24, 2020 08:07
== END 2020-10-24 08:18 | disposition home or self-care (01) ==
LOC: ER 06:29
DX: M54.5 Low back pain (principal); G89.29 Other chronic pain; F17.200 Nicotine dependence, unspecified, uncomplicated; Z86.2 Personal history of diseases of the blood and blood-forming organs and certain disorders involving the immune mechanism
CPT/HCPCS: 72100; 81025; 96372; 99284; J1885; J2360; J2930

== ENCOUNTER 2021-07-14 18:55 | Emergency (ER) | payer SELFPAY ==
[~2021-07-14] VITALS: Ht 165.1 cm; Wt 72.7 kg
[~2021-07-14 18:55] MED LIST changes: +CYCL10TA19 PO; -CYCL10TA2 PO; +TRAM50TA PO
[2021-07-14] MEDS ORDERED: KETOROLAC 60 MG/2 ML VIAL. IM ONE (20:30)
[2021-07-14] MEDS ORDERED: DEXAMETHASONE 4 MG TABLET PO ONE (20:30)
--- NOTE | 2021-07-14 20:48 | PHYS DOC ---
Past Medical History Past Medical History: Anemia Additional Past Medical Histor: 3 brain aneurysms, has had brain stent placed for 6 months, BULGING DISCS Past Surgical History: No Surgical History Additional Past Surgical Histo: D&C Smoking Status: Current Every Day Smoker Alcohol Use: Occasionally Drug Use: None General Adult EDM: Chief Complaint: FLU SYMPTOM HPI: HPI: Patient is a 41-year-old female that presents today with sore throat, bilateral ear pain, and cough. Patient states that last night she started events some throat pain and bilateral ear pain and by this morning her pain in her throat and ear were were worse, and she presents today for evaluation and management of this pain. Patient denies chest pain, shortness of breath, patient does smoke per her history, and she has not taken any medications except for Tylenol for her symptoms. Review of Systems: Review of Systems: Constitutional: Denies fever or chills. [] Eyes: Denies change in visual acuity. [] HENT: Bilateral ear pain right worse than left and sore throat Respiratory: Cough denies shortness of breath. [] Cardiovascular: Denies chest pain or edema. [] GI: Denies abdominal pain, nausea, vomiting, bloody stools or diarrhea. [] : Denies dysuria. [] Musculoskeletal: Denies back pain or joint pain. [] Integument: Denies rash. [] Neurologic: Denies headache, focal weakness or sensory changes. [] Endocrine: Denies polyuria or polydipsia. [] Lymphatic: Denies swollen glands. [] Psychiatric: Denies depression or anxiety. [] Heart Score: C/O Chest Pain: No Risk Factors: Risk Factors: DM, Current or recent (<one month) smoker, HTN, HLP, family history of CAD, obesity. Risk Scores: Score 0 - 3: 2.5% MACE over next 6 weeks - Discharge Home Score 4 - 6: 20.3% MACE over next 6 weeks - Admit for Clinical Observation Score 7 - 10: 72.7% MACE over next 6 weeks - Early Invasive Strategies Current Medications: Current Medications Medications (Trade) Dose Ordered Sig/Chase Start Time Stop Time Status Last Admin Dose Admin Dexamethasone (Decadron) 10 mg 1X ONCE 07/14/21 20:30 07/14/21 20:31 DC 07/14/21 20:39 10 MG Ketorolac Tromethamine (Toradol Im) 60 mg 1X ONCE 07/14/21 20:30 07/14/21 20:31 DC 07/14/21 20:39 60 MG Allergies: Allergies: Allergies Coded Allergies Type Severity Reaction Last Updated Verified No Known Drug Allergies 08/20/14 No Physical Exam: PE: Constitutional: Well developed, well nourished, no acute distress, non-toxic appearance. [] HENT: Normocephalic, atraumatic, tympanic membranes are bulging, no erythema noted, oropharynx moist, exudate noted on bilateral tonsils, nose normal. [] Eyes: PERRLA, EOMI, conjunctiva normal, no discharge. [] Neck: Normal range of motion, no tenderness, supple, no stridor. [] Cardiovascular:Heart rate regular rhythm, no murmur [] Lungs & Thorax: Bilateral breath sounds faint wheezes throughout Abdomen: Bowel sounds normal, soft, no tenderness, no masses, no pulsatile masses. [] Skin: Warm, dry, no erythema, no rash. [] Back: No tenderness, no CVA tenderness. [] Extremities: No tenderness, no cyanosis, no clubbing, ROM intact, no edema. [] Neurologic: Alert and oriented X 3, normal motor function, normal sensory function, no focal deficits noted. [] Psychologic: Affect normal, judgement normal, mood normal. [] Current Patient Data: Labs: Rapid Strep negative per nursing staff Vital Signs: Vital Signs Date Time Temp Pulse Resp B/P (MAP) Pulse Ox O2 Delivery O2 Flow Rate FiO2 07/14/21 19:55 99.6 96 20 142/69 (93) 96 Room Air 99.6 Vital Signs Date Time Temp Pulse Resp B/P (MAP) Pulse Ox O2 Delivery O2 Flow Rate FiO2 07/14/21 19:55 99.6 96 20 142/69 (93) 96 Room Air 99.6 EKG: EKG: [] Radiology/Procedures: Radiology/Procedures: [REASON: cough PROCEDURE: CHEST PA & LATERAL EXAM: PA and Lateral Views of the Chest DATE: 07/14/2021 8:23 PM INDICATION: Reason: cough / Spl. Instructions: / History: COMPARISON: No Prior FINDINGS: The heart is not enlarged. Mediastinal and hilar contours are normal. Mild bibasilar opacities likely atelectasis. Early/developing consolidation is not entirely excluded. No pleural effusion or pneumothorax. IMPRESSION: Mild bibasilar opacities likely atelectasis. Early/developing consolidation is not entirely excluded. Electronically signed by: Artis Cervantes MD (07/14/2021 9:24 PM) [facility] ] Course & Med Decision Making: Course & Med Decision Making Pertinent Labs and Imaging studies reviewed. (See chart for details) 0 reviewed radiological and laboratory results with patient, did inform her her rapid strep was negative but with her symptoms I suspect that she has bacterial strep, I did offer her oral antibiotics or an injection of penicillin, she is requesting the injection at this time. Patient was given a dose of steroids as well while here in the emergency department she is to follow-up with her primary care physician in the next 3 to 5 days her symptoms are not improved. Dragon Disclaimer: Dragon Disclaimer: This electronic medical record was generated, in whole or in part, using a voice recognition dictation system. Departure Departure Impression: Primary Impression: Acute pharyngitis Qualified Codes: J02.9 - Acute pharyngitis, unspecified Disposition: HOME / SELF CARE / HOMELESS Condition: STABLE Referrals: NO PCP (PCP) Patient Instructions: Viral and Bacterial Pharyngitis Additional Instructions: Tylenol and/or ibuprofen as needed for fever and pain Increase by mouth fluids avoiding caffeine and alcohol Follow-up with your primary care physician or one of the listed clinics below for further evaluation and management in 3 to 5 days if symptoms have not improved Return here to the emergency department if you have increased work of breathing, you are unable to control your airway or saliva, or you have chest pain. [employer] Jul 14, 2021 20:48
--- NOTE | 2021-07-14 21:26 | RAD ---
EXAM: PA and Lateral Views of the Chest DATE: 07/14/2021 8:23 PM INDICATION: Reason: cough / Spl. Instructions: / History: COMPARISON: No Prior FINDINGS: The heart is not enlarged. Mediastinal and hilar contours are normal. Mild bibasilar opacities likely atelectasis. Early/developing consolidation is not entirely excluded. No pleural effusion or pneumothorax. IMPRESSION: Mild bibasilar opacities likely atelectasis. Early/developing consolidation is not entirely excluded. Electronically signed by: Artis Cervantes MD (07/14/2021 9:24 PM) [facility]
[2021-07-14] MEDS ORDERED: PENICILLIN G BENZATHINE LA 2,400,000 UNIT/4 ML DISP.SYRIN. IM ONE (21:45)
[2021-07-14 22:30] VITALS: BP 134/74
== END 2021-07-14 22:46 | disposition home or self-care (01) ==
LOC: ER 18:55
DX: J02.9 Acute pharyngitis, unspecified (principal); H92.03 Otalgia, bilateral; R05.9 Cough, unspecified; F17.200 Nicotine dependence, unspecified, uncomplicated
CPT/HCPCS: 71046; 87070; 87880; 96372; 99284; J0561; J1885